=== PATIENT | male | born 1965 | race Caucasian/White ===

== ENCOUNTER 2023-06-07 09:28 | Inpatient (IN) | payer MEDICAID, OTHER ==
[~2023-06-07] VITALS: Ht 182.9 cm; Wt 106.7 kg
[2023-06-07] VITALS (11 sets, daily range): BP systolic 121–132; BP diastolic 56–78; PULSE 80–91; RESP 16–22; TEMP 97.9–98.1; O2SAT 0–99
[2023-06-07] MEDS: SODIUM CHLORIDE 0.9% 1,000 ML IV SCH ×2 (00:55→16:31)
[2023-06-07 10:21] LABS: Eosinophils # (auto) 0.2 10 ^3/uL (0-0.8); Lymphocytes # (auto) 1.1 10 ^3/uL (0.4-5.4); Monocytes # (auto) 0.3 10 ^3/uL (0-1.3); Neutrophils # (auto) 2.7 10 ^3/uL (1.6-8.6)
[2023-06-07 10:23] LABS: Basophils # (auto) 0.1 10 ^3/uL (0-0.2); Basophils % (auto) 2.9 % (0.0-2.0); Eosinophils % (auto) 3.5 % (0.0-7.0); Hematocrit 43.1 % (41.0-53.0); Hemoglobin 14.5 g/dL (13.5-17.5); Lymphocytes % (auto) 25.5 % (10.0-50.0); Mean Corpuscular Hemoglobin 34.2 pg (28.0-32.0); Mean Corpuscular Hgb Conc. 33.7 g/dL (32.0-36.0); Mean Corpuscular Volume 101.4 fL (80.0-100.0); Monocytes % (auto) 6.6 % (0.0-12.0); Neutrophils % (auto) 61.5 % (37.0-80.0); Red Blood Cells 4.26 10^6/uL (4.5-5.90); Red Cell Distribution Width 13.5 % (11.8-14.3); White Blood Cell 4.3 10^3/uL (4.4-10.8)
[2023-06-07 10:34] LABS: Albumin 3.9 g/dL (3.4-5.0); Calcium 8.9 mg/dL (8.5-10.1); Potassium 3.6 mmol/L (3.5-5.1)
[2023-06-07 10:37] LABS: BUN/Creatinine Ratio 11.3 (10.0-20.0); Bilirubin, Total 1.2 mg/dL (0.2-1.0); Total Protein 7.6 g/dL (6.4-8.2)
[2023-06-07] MEDS ORDERED: AZITHROMYCIN 500MG/ 250ML 250 ML IV ONE (12:00)
[2023-06-07] MEDS ORDERED: DexAMETHasone SOD PHOS 10MG/1ML VIAL INJ IV ONE (12:00)
[2023-06-07] MEDS ORDERED: cefTRIAXone 1GM/50ML D5W 50 ML IV ONE (12:00)
[2023-06-07] MEDS ORDERED: IPRATROPIUM BROM 0.5 MG/2.5ML INH SOL NEB ONE (12:00)
[2023-06-07] MEDS ORDERED: ALBUTEROL SULF 2.5 MG/0.5ML(0.5%) NEB SOLN NEB ONE (12:00)
[2023-06-07] MEDS ORDERED: DEXTROSE (50%) 50ML SYRG IV PRN (12:30)
[2023-06-07] MEDS ORDERED: MORPHINE SULFATE INJ 2 MG/ml SYRG IV PRN (12:30)
[2023-06-07] MEDS ORDERED: DOCUSATE SOD 100 MG CAP PO PRN (12:30)
[2023-06-07] MEDS ORDERED: ONDANSETRON HCL 4 MG/2 ML VIAL IV PRN (12:30)
[2023-06-07 13:00] LABS: INR 1.04 (0.9-1.15)
[2023-06-07] MEDS ORDERED: CLOP75TA70 PO (14:40)
[2023-06-07] MEDS ORDERED: FLUO20TA36 PO (14:40)
[2023-06-07] MEDS ORDERED: GABA-1250 PO (14:40)
[2023-06-07] MEDS ORDERED: ACAM1TAB OR (14:40)
[2023-06-07] MEDS ORDERED: METO25TA5 PO (14:40)
[2023-06-07] MEDS: IPRATROPIUM BROM 0.5 MG/2.5ML INH SOL NEB SCH ×3 (14:49→22:28)
[2023-06-07] MEDS: ALBUTEROL SULF 2.5 MG/0.5ML(0.5%) NEB SOLN NEB SCH ×3 (14:49→22:28)
[2023-06-07] MEDS: InsuLIN REG 1unit/0.01ml Soln (100units/ml) SC SCH ×2 (17:35→22:00)
[2023-06-07] MEDS: ACCU-CHEK COMFORT CURVE STRIP VI SCH ×2 (17:52→22:00)
[2023-06-07] MEDS: DexAMETHasone SOD PHOS 4 MG/1ML SDV INJ IV SCH (18:29)
[2023-06-07] MEDS: METOPROLOL TARTRATE 25 MG TAB PO SCH (21:45)
[2023-06-08] VITALS (19 sets, daily range): BP systolic 117–155; BP diastolic 66–83; PULSE 68–95; RESP 18–20; TEMP 97.4–98.1; O2SAT 94–100
[2023-06-08] MEDS: DexAMETHasone SOD PHOS 4 MG/1ML SDV INJ IV SCH ×4 (00:20→18:02)
[2023-06-08] MEDS: ALBUTEROL SULF 2.5 MG/0.5ML(0.5%) NEB SOLN NEB SCH ×6 (01:59→23:13)
[2023-06-08] MEDS: IPRATROPIUM BROM 0.5 MG/2.5ML INH SOL NEB SCH ×6 (01:59→23:13)
[2023-06-08] MEDS: SODIUM CHLORIDE 0.9% 1,000 ML IV SCH ×3 (05:38→22:03)
[2023-06-08] MEDS: ACCU-CHEK COMFORT CURVE STRIP VI SCH ×4 (06:01→22:04)
[2023-06-08] MEDS: InsuLIN REG 1unit/0.01ml Soln (100units/ml) SC SCH ×4 (06:02→22:03)
[2023-06-08 06:39] LABS: Basophils # (auto) 0 10 ^3/uL (0-0.2); Eosinophils # (auto) 0 10 ^3/uL (0-0.8); Hematocrit 37.5 % (41.0-53.0); Hemoglobin 12.8 g/dL (13.5-17.5); Lymphocytes # (auto) 0.4 10 ^3/uL (0.4-5.4); Monocytes # (auto) 0.2 10 ^3/uL (0-1.3); Neutrophils # (auto) 4.4 10 ^3/uL (1.6-8.6); Nucleated Red Blood Cells % 0.2 %; White Blood Cell 5.1 10^3/uL (4.4-10.8)
[2023-06-08 06:43] LABS: Basophils % (auto) 0.1 % (0.0-2.0); Lymphocytes % (auto) 8.3 % (10.0-50.0); Mean Corpuscular Hemoglobin 34.8 pg (28.0-32.0); Mean Corpuscular Hgb Conc. 34.1 g/dL (32.0-36.0); Mean Corpuscular Volume 101.9 fL (80.0-100.0); Monocytes % (auto) 3.9 % (0.0-12.0); Neutrophils % (auto) 87.7 % (37.0-80.0); Red Blood Cells 3.68 10^6/uL (4.5-5.90); Red Cell Distribution Width 13.9 % (11.8-14.3)
[2023-06-08 06:48] LABS: Potassium 3.6 mmol/L (3.5-5.1)
[2023-06-08 07:01] LABS: Albumin 3.2 g/dL (3.4-5.0); BUN/Creatinine Ratio 14.9 (10.0-20.0); Bilirubin, Total 0.7 mg/dL (0.2-1.0); Calcium 8.5 mg/dL (8.5-10.1); Total Protein 6.7 g/dL (6.4-8.2)
[2023-06-08] MEDS: CLOPIDOGREL BISULFATE 75 MG TAB PO SCH (09:28)
[2023-06-08] MEDS: METOPROLOL TARTRATE 25 MG TAB PO SCH ×2 (09:28→21:57)
[2023-06-08] MEDS: PARoxetine 20 MG TAB PO SCH (09:29)
[2023-06-08] MEDS ORDERED: ACETAMINOPHEN 325 MG TAB PO PRN (11:30)
[2023-06-08] MEDS ORDERED: HYDROcodone-ACET 5/325MG TAB PO PRN (11:30)
[2023-06-08] MEDS ORDERED: MELATONIN 5 MG TAB PO ONE ×2 (22:00)
[2023-06-08] MEDS ORDERED: TEMAZEPAM 15 MG CAP PO ONE (22:15)
[2023-06-09] VITALS (15 sets, daily range): BP systolic 130–166; BP diastolic 70–84; PULSE 55–99; RESP 14–20; TEMP 97.6–98.6; O2SAT 95–99
[2023-06-09] MEDS: DexAMETHasone SOD PHOS 4 MG/1ML SDV INJ IV SCH ×4 (00:45→17:49)
[2023-06-09] MEDS: IPRATROPIUM BROM 0.5 MG/2.5ML INH SOL NEB SCH ×6 (02:00→22:23)
[2023-06-09] MEDS: ALBUTEROL SULF 2.5 MG/0.5ML(0.5%) NEB SOLN NEB SCH ×6 (02:00→22:23)
[2023-06-09] MEDS: ACCU-CHEK COMFORT CURVE STRIP VI SCH ×4 (06:01→21:11)
[2023-06-09] MEDS: InsuLIN REG 1unit/0.01ml Soln (100units/ml) SC SCH ×4 (06:05→21:14)
[2023-06-09] MEDS: SODIUM CHLORIDE 0.9% 1,000 ML IV SCH ×3 (06:10→22:50)
[2023-06-09] MEDS: CLOPIDOGREL BISULFATE 75 MG TAB PO SCH (10:45)
[2023-06-09] MEDS: PARoxetine 20 MG TAB PO SCH (10:46)
[2023-06-09] MEDS: METOPROLOL TARTRATE 25 MG TAB PO SCH ×2 (10:46→21:11)
[2023-06-09] MEDS ORDERED: levoFLOXacin 500MG 100 ML IV ONE (11:15)
[2023-06-09] MEDS: chlordiazePOXIDE HCL 25 MG CAP PO SCH ×2 (14:23→18:36)
[2023-06-09] MEDS: FOLIC ACID 1 MG, MULTIPLE VITAMIN 10 ML, MAGNESIUM SULF SDV 50% 8 MEQ, THIAMINE INJ 100... INJ SCH ×5 (14:23)
[2023-06-09] MEDS ORDERED: TEMAZEPAM 15 MG CAP PO ONE (22:15)
[2023-06-10] VITALS (15 sets, daily range): BP systolic 123–158; BP diastolic 68–81; PULSE 63–88; RESP 16–20; TEMP 97.7–98.6; O2SAT 93–100
[2023-06-10] MEDS: DexAMETHasone SOD PHOS 4 MG/1ML SDV INJ IV SCH ×5 (00:25→23:49)
[2023-06-10] MEDS: ALBUTEROL SULF 2.5 MG/0.5ML(0.5%) NEB SOLN NEB SCH ×4 (02:14→13:54)
[2023-06-10] MEDS: IPRATROPIUM BROM 0.5 MG/2.5ML INH SOL NEB SCH ×4 (02:14→13:54)
[2023-06-10] MEDS: chlordiazePOXIDE HCL 25 MG CAP PO SCH ×3 (02:43→21:37)
[2023-06-10] MEDS: SODIUM CHLORIDE 0.9% 1,000 ML IV SCH ×2 (05:55→15:30)
[2023-06-10] MEDS: ACCU-CHEK COMFORT CURVE STRIP VI SCH ×4 (06:16→21:38)
[2023-06-10] MEDS: InsuLIN REG 1unit/0.01ml Soln (100units/ml) SC SCH ×4 (06:16→21:44)
[2023-06-10 06:23] LABS: Potassium 3.8 mmol/L (3.5-5.1)
[2023-06-10 06:30] LABS: Albumin 2.9 g/dL (3.4-5.0); BUN/Creatinine Ratio 16.2 (10.0-20.0); Bilirubin, Total 0.5 mg/dL (0.2-1.0); Calcium 8.2 mg/dL (8.5-10.1)
[2023-06-10] MEDS: levoFLOXacin 500MG 100 ML IV SCH (11:28)
[2023-06-10] MEDS: PARoxetine 20 MG TAB PO SCH (11:29)
[2023-06-10] MEDS: CLOPIDOGREL BISULFATE 75 MG TAB PO SCH (11:29)
[2023-06-10] MEDS: METOPROLOL TARTRATE 25 MG TAB PO SCH ×2 (11:30→21:38)
[2023-06-10] MEDS: FOLIC ACID 1 MG, MULTIPLE VITAMIN 10 ML, MAGNESIUM SULF SDV 50% 8 MEQ, THIAMINE INJ 100... INJ SCH ×5 (13:10)
[2023-06-10] MEDS ORDERED: ALBUTEROL SULF 2.5 MG/0.5ML(0.5%) NEB SOLN NEB PRN (18:00)
[2023-06-10] MEDS ORDERED: IPRATROPIUM BROM 0.5 MG/2.5ML INH SOL NEB PRN (18:00)
[2023-06-10] MEDS ORDERED: TEMAZEPAM 15 MG CAP PO ONE (21:00)
[2023-06-11] MEDS: SODIUM CHLORIDE 0.9% 1,000 ML IV SCH ×2 (00:13→08:08)
[2023-06-11 05:00] VITALS: BP 162/71; PULSE 67; RESP 18; TEMP 97.6; O2SAT 94
[2023-06-11] MEDS: InsuLIN REG 1unit/0.01ml Soln (100units/ml) SC SCH ×2 (06:27→11:30)
[2023-06-11] MEDS: DexAMETHasone SOD PHOS 4 MG/1ML SDV INJ IV SCH ×2 (06:27→12:24)
[2023-06-11] MEDS: ACCU-CHEK COMFORT CURVE STRIP VI SCH ×2 (06:27→11:35)
[2023-06-11 07:18] LABS: Potassium 4.1 mmol/L (3.5-5.1)
[2023-06-11 07:24] LABS: Albumin 2.8 g/dL (3.4-5.0); Bilirubin, Total 0.4 mg/dL (0.2-1.0); Calcium 8.4 mg/dL (8.5-10.1); Total Protein 5.9 g/dL (6.4-8.2)
[2023-06-11 08:00] VITALS: BP 156/95; PULSE 55; RESP 18; TEMP 98.1; O2SAT 97
[2023-06-11 08:37] LABS: Hepatitis B Surface Antibody Negative (Negative)
[2023-06-11 09:00] VITALS: BP 156/95; PULSE 55; RESP 18; TEMP 98.1; O2SAT 97
[2023-06-11 09:04] LABS: Hepatitis A Total Antibody Negative (Negative)
[2023-06-11 09:29] LABS: Hepatitis C Antibody Negative (Negative)
[2023-06-11] MEDS: METOPROLOL TARTRATE 25 MG TAB PO SCH (10:00)
[2023-06-11] MEDS ORDERED: chlordiazePOXIDE HCL 25 MG CAP PO SCH (10:00)
[2023-06-11] MEDS: CLOPIDOGREL BISULFATE 75 MG TAB PO SCH (10:34)
[2023-06-11] MEDS: PARoxetine 20 MG TAB PO SCH (10:34)
[2023-06-11] MEDS: levoFLOXacin 500MG 100 ML IV SCH (10:34)
[2023-06-11] MEDS: FOLIC ACID 1 MG, MULTIPLE VITAMIN 10 ML, MAGNESIUM SULF SDV 50% 8 MEQ, THIAMINE INJ 100... INJ SCH ×5 (12:00)
[2023-06-11] MEDS ORDERED: THIA100T13 PO (12:40)
[2023-06-11] MEDS ORDERED: PANT40T PO (12:40)
[2023-06-11] MEDS ORDERED: CHL25C PO (12:40)
[2023-06-11] MEDS ORDERED: MULT-1058 PO (12:40)
[2023-06-11] MEDS ORDERED: FOLI-119 PO (12:40)
[2023-06-11] MEDS ORDERED: LEVO500T91 PO (12:40)
[2023-06-12] MEDS ORDERED: chlordiazePOXIDE HCL 25 MG CAP PO SCH (07:00)
== END 2023-06-11 13:41 | disposition home or self-care (01) | DRG 137 ==
LOC: ER 09:28 → OVERFLOW 12:39 → WEST WING 14:00
PROVIDERS: ADMIT Internal Medicine; ATTEND Family Medicine
DX: J69.0 Pneumonitis due to inhalation of food and vomit (principal); N17.9 Acute kidney failure, unspecified; F32.A Depression, unspecified; I10 Essential (primary) hypertension; F41.9 Anxiety disorder, unspecified; Z86.79 Personal history of other diseases of the circulatory system; R74.01 Elevation of levels of liver transaminase levels; R73.9 Hyperglycemia, unspecified; F10.10 Alcohol abuse, uncomplicated
CPT/HCPCS: 36415; 36600; 71046; 76705; 80053; 82805; 82962; 83036; 84484; 85025; 85379; 85610; 86704; 86706; 86708; 86803; 87340; 93005; 93306; 94640; 96365; 96375; G0378; J0696; J1100; J1815; J1956

== ENCOUNTER 2023-08-22 12:24 | Emergency (ER) | payer MEDICAID ==
[~2023-08-22] VITALS: Ht 182.9 cm; Wt 104.7 kg
[~2023-08-22 12:24] MED LIST: ACAM1TAB OR; CHL25C PO; CLOP75TA70 PO; FLUO20TA36 PO; FOLI-119 PO; GABA-1250 PO; LEVO500T91 PO; METO25TA5 PO; MULT-1058 PO; PANT40T PO; THIA100T13 PO
[2023-08-22] MEDS ORDERED: CHL10C PO ×2 (12:41)
[2023-08-22] MEDS ORDERED: LORazepam 2MG/ML-1ML VIAL IV ONE (12:45)
[2023-08-22 13:02] LABS: Basophils # (auto) 0.1 10 ^3/uL (0-0.2); Basophils % (auto) 0.8 % (0.0-2.0); Hemoglobin 15.1 g/dL (13.5-17.5); Lymphocytes # (auto) 1.6 10 ^3/uL (0.4-5.4); Neutrophils # (auto) 6.8 10 ^3/uL (1.6-8.6); Nucleated Red Blood Cells % 0.1 %
[2023-08-22 13:03] LABS: Eosinophils # (auto) 0.1 10 ^3/uL (0-0.8); Eosinophils % (auto) 1.6 % (0.0-7.0); Hematocrit 44.6 % (41.0-53.0); Lymphocytes % (auto) 17.9 % (10.0-50.0); Mean Corpuscular Hemoglobin 34.7 pg (28.0-32.0); Mean Corpuscular Hgb Conc. 33.9 g/dL (32.0-36.0); Mean Corpuscular Volume 102.5 fL (80.0-100.0); Monocytes # (auto) 0.4 10 ^3/uL (0-1.3); Monocytes % (auto) 4.5 % (0.0-12.0); Neutrophils % (auto) 75.2 % (37.0-80.0); Red Blood Cells 4.35 10^6/uL (4.5-5.90); Red Cell Distribution Width 13.9 % (11.8-14.3)
[2023-08-22 13:22] LABS: Alanine Aminotransferase 56 U/L (7-40); Albumin 4.4 g/dL (3.2-4.8); Alkaline Phosphatase 88 U/L (46-116); Anion Gap 11 (5-15); Aspartate Aminotransferase 50 U/L (13-40); BUN/Creatinine Ratio 8.1 (10.0-20.0); Blood Alcohol < 3.0 mg/dL (<10); Blood Urea Nitrogen 9 mg/dL (9-23); Calcium 9.4 mg/dL (8.7-10.4); Carbon Dioxide 22 mmol/L (20-30); Chloride 105 mmol/L (98-107); Glucose 103 mg/dL (74-106); Potassium 3.9 mmol/L (3.5-5.1); Sodium 138 mmol/L (136-145)
[2023-08-22 13:23] LABS: Bilirubin, Total 1.7 mg/dL (0.2-1.0); Total Protein 7.1 g/dL (5.7-8.2)
[2023-08-22] MEDS ORDERED: FOLIC ACID 1 MG, MULTIPLE VITAMIN 10 ML, MAGNESIUM SULF SDV 50% 8 MEQ, THIAMINE INJ 100... INJ SCH ×5 (13:52)
[2023-08-22 15:07] VITALS: PULSE 64; RESP 18; O2SAT 94
[2023-08-22 19:31] VITALS: BP 125/83; PULSE 73; RESP 18; TEMP 98.4; O2SAT 97
== END 2023-08-22 19:35 | disposition home or self-care (01) ==
LOC: ER 12:24
DX: F10.239 Alcohol dependence with withdrawal, unspecified (principal); R11.2 Nausea with vomiting, unspecified; R25.1 Tremor, unspecified; Y90.9 Presence of alcohol in blood, level not specified
CPT/HCPCS: 36415; 80053; 80320; 85025; 96365; 96375; 99284; J2060; J3411; J3475

== ENCOUNTER 2023-08-28 08:46 | Emergency (ER) | payer MEDICAID ==
[~2023-08-28] VITALS: Ht 182.9 cm; Wt 107.2 kg
[~2023-08-28 08:46] MED LIST changes: +CHL10C PO
[2023-08-28 09:04] VITALS: BP 164/66; PULSE 63; RESP 18; TEMP 98.4; O2SAT 98
[2023-08-28] MEDS ORDERED: CHL10C PO (09:11)
== END 2023-08-28 09:23 | disposition home or self-care (01) ==
LOC: ER 08:46
DX: F10.20 Alcohol dependence, uncomplicated (principal); Z76.0 Encounter for issue of repeat prescription; Z90.49 Acquired absence of other specified parts of digestive tract; Z79.899 Other long term (current) drug therapy; Y90.0 Blood alcohol level of less than 20 mg/100 ml

== ENCOUNTER 2023-10-16 11:18 | Inpatient (IN) | payer MEDICAID ==
[~2023-10-16] VITALS: Ht 182.9 cm; Wt 108.8 kg
[2023-10-16] MEDS ORDERED: LORazepam 2MG/ML-1ML VIAL IV ONE (12:00)
[2023-10-16 12:08] LABS: Basophils # (auto) 0.1 10 ^3/uL (0-0.2); Basophils % (auto) 1.2 % (0.0-2.0); Eosinophils # (auto) 0.1 10 ^3/uL (0-0.8); Eosinophils % (auto) 1.9 % (0.0-7.0); Hematocrit 43.7 % (41.0-53.0); Hemoglobin 14.8 g/dL (13.5-17.5); Lymphocytes # (auto) 1.3 10 ^3/uL (0.4-5.4); Lymphocytes % (auto) 18.5 % (10.0-50.0); Mean Corpuscular Hgb Conc. 33.8 g/dL (32.0-36.0); Mean Corpuscular Volume 100.6 fL (80.0-100.0); Monocytes # (auto) 0.5 10 ^3/uL (0-1.3); Monocytes % (auto) 7.6 % (0.0-12.0); Neutrophils # (auto) 4.9 10 ^3/uL (1.6-8.6); Neutrophils % (auto) 70.8 % (37.0-80.0); Nucleated Red Blood Cells % 0.1 %; Red Blood Cells 4.35 10^6/uL (4.5-5.90); Red Cell Distribution Width 14.8 % (11.8-14.3)
[2023-10-16 12:17] LABS: Alkaline Phosphatase 65 U/L (46-116); Aspartate Aminotransferase 99 U/L (13-40); Blood Alcohol 3.3 mg/dL (<10); Calcium 9.2 mg/dL (8.5-10.1); Chloride 100 mmol/L (98-107); Glucose 118 mg/dL (74-106); Sodium 134 mmol/L (136-145)
[2023-10-16] MEDS ORDERED: SODIUM CHLORIDE 0.9% 1,000 ML IV ONE (12:45)
[2023-10-16 14:39] LABS: Alanine Aminotransferase 31 U/L (7-40); Albumin 4.3 g/dL (3.2-4.8); Anion Gap 7 (5-15); BUN/Creatinine Ratio 7.9 (10.0-20.0); Bilirubin, Total 1.7 mg/dL (0.2-1.0); Blood Urea Nitrogen 8 mg/dL (9-23); Carbon Dioxide 27 mmol/L (20-30); Potassium 3.4 mmol/L (3.5-5.1); Total Protein 6.7 g/dL (5.7-8.2)
[2023-10-16] MEDS ORDERED: NITROGLYCERIN 0.4 MG SL TAB SL PRN (18:00)
[2023-10-16] MEDS ORDERED: ACETAMINOPHEN 325 MG TAB PO PRN (18:00)
[2023-10-16] MEDS ORDERED: ONDANSETRON HCL 4 MG/2 ML VIAL IV PRN (18:00)
[2023-10-16] MEDS ORDERED: HYDROcodone-ACET 5/325MG TAB PO PRN (18:00)
[2023-10-16] MEDS ORDERED: MORPHINE SULFATE INJ 2 MG/ml SYRG IV PRN ×2 (18:00)
[2023-10-16] MEDS ORDERED: LORazepam 2MG/ML-1ML VIAL IV PRN (18:00)
[2023-10-16 19:05] VITALS: TEMP 98.4
[2023-10-16] MEDS: chlordiazePOXIDE HCL 5 MG CAP PO SCH ×2 (21:33→22:00)
[2023-10-16 23:21] VITALS: BP 138/74; PULSE 65; RESP 18; O2SAT 95
[2023-10-17] MEDS ORDERED: MAGNESIUM SULFATE 1GM/100ML 100 ML IV SCH
[2023-10-17] MEDS ORDERED: POTASSIUM CHL 20 Meq TABLET PO ONE (00:30)
[2023-10-17] MEDS ORDERED: SODIUM CHLORIDE 0.9% 1,000 ML IV ONE (00:30)
[2023-10-17 01:02] LABS: Urine Bacteria NONE SEEN /hpf (None Seen); Urine Blood Negative /uL (Negative); Urine Clarity Clear (Clear); Urine Color Orange (Yellow); Urine Hyaline Cast MOD /lpf (0 - 2); Urine Mucus MODERATE (None Seen); Urine Protein, UAD 2+ (Negative); Urine Specific Gravity 1.043 (1.001-1.035); Urine WBC 4 /hpf (0 - 3)
[2023-10-17 01:23] LABS: Amphetamine Screen, Urine Neg (NEGATIVE); Barbiturate Scree,Urine Neg (NEGATIVE); Benzodiazephine Screen, Urine Pos (NEGATIVE); Cocaine Screen, Urine Neg (NEGATIVE); Opiate Scree,Urine Neg (NEGATIVE)
[2023-10-17 01:24] LABS: Cannabinoid Screen, Urine Neg (NEGATIVE); Phencyclidine Screen, Urine Neg (NEGATIVE)
[2023-10-17] MEDS ORDERED: MULTIPLE VITAMIN TAB PO SCH (10:00)
[2023-10-17] MEDS ORDERED: ENOXAPARIN SOD 40 MG/0.4 ML SYRINGE SC SCH (10:00)
[2023-10-17] MEDS ORDERED: FOLIC ACID 1 MG, MULTIPLE VITAMIN 10 ML, MAGNESIUM SULF SDV 50% 8 MEQ, THIAMINE INJ 100... INJ SCH ×5 (12:00)
== END 2023-10-17 05:13 | disposition left against medical advice (07) | DRG 770 ==
LOC: ER 11:18 → TELE 17:56
PROVIDERS: ADMIT Internal Medicine; ATTEND Internal Medicine
DX: F10.139 Alcohol abuse with withdrawal, unspecified (principal); E87.1 Hypo-osmolality and hyponatremia; E83.42 Hypomagnesemia; I10 Essential (primary) hypertension; Z53.29 Procedure and treatment not carried out because of patient's decision for other reasons; F41.9 Anxiety disorder, unspecified; E87.6 Hypokalemia
CPT/HCPCS: 36415; 80053; 80307; 80320; 81001; 83735; 84484; 85025; 96361; 96374; G0378

== ENCOUNTER 2024-03-20 13:36 | Inpatient (IN) | payer MEDICAID ==
[~2024-03-20] VITALS: Ht 182.9 cm; Wt 101.2 kg
[~2024-03-20 13:36] MED LIST changes: -LEVO500T91 PO
[2024-03-20 13:57] LABS: Mean Corpuscular Hemoglobin 34.9 pg (28.0-32.0)
[2024-03-20 14:00] LABS: Hematocrit 41.2 % (41.0-53.0); Hemoglobin 13.8 g/dL (13.5-17.5); Mean Corpuscular Hgb Conc. 33.6 g/dL (32.0-36.0); Mean Corpuscular Volume 103.9 fL (80.0-100.0); Red Blood Cells 3.96 10^6/uL (4.5-5.90); Red Cell Distribution Width 14.4 % (11.8-14.3); White Blood Cell 11.4 10^3/uL (4.4-10.8)
[2024-03-20] MEDS ORDERED: ASPirin 81 mg TAB PO ONE (14:15)
[2024-03-20 14:17] LABS: Alanine Aminotransferase 34 U/L (7-40); Alkaline Phosphatase 82 U/L (46-116); Anion Gap 15 (5-15); Aspartate Aminotransferase 66 U/L (13-40); BUN/Creatinine Ratio 23.3 (10.0-20.0); Calcium 7.9 mg/dL (8.5-10.1); Carbon Dioxide 23 mmol/L (20-30); Chloride 100 mmol/L (98-107); Glucose 146 mg/dL (74-106); Potassium 3.3 mmol/L (3.5-5.1); Sodium 138 mmol/L (136-145)
[2024-03-20 14:18] LABS: Bilirubin, Total 1.3 mg/dL (0.2-1.0); Total Protein 5.8 g/dL (5.7-8.2)
[2024-03-20 14:34] LABS: Blood Urea Nitrogen 87 mg/dL (9-23)
[2024-03-20 14:39] LABS: Basophils % (manual) 0 (0.0-2.0); Blast Cells 0; Eosinophils % (manual) 0 (0-7); Myelocytes % 0; Promyelocytes % 0; Reactive Lymphocytes 0
[2024-03-20 14:40] LABS: Blood Alcohol 3.2 mg/dL (<10)
[2024-03-20 14:46] LABS: INR 1.15 (0.9-1.15); Partial Thromboplastin Time 29.3 SEC (24.5-34.5); Prothrombin Time 12.1 sec (9.3-11.8)
[2024-03-20 14:48] LABS: Band Neutrophils % (manual) 22; Lymphocytes % (manual) 4 (10.0-50.0); Metamyelocytes % 5; Monocytes % (manual) 1 (0-12)
[2024-03-20 14:49] LABS: Platelet Estimate Adequate
[2024-03-20] MEDS: BUDESONIDE (INHALATION) 0.5 MG/2 ML NEB NEB ONE (14:49)
[2024-03-20] MEDS: ALBUTEROL SULF 2.5 MG/0.5ML(0.5%) NEB SOLN NEB ONE (14:50)
[2024-03-20] MEDS: IPRATROPIUM BROM 0.5 MG/2.5ML INH SOL NEB ONE (14:50)
[2024-03-20 15:22] LABS: Lactic Acid w/Reflex 4.5 mmol/L (0.4-2.0)
[2024-03-20] MEDS: SODIUM CHLORIDE 0.9% 2,350 ML IV ONE (15:45)
[2024-03-20] MEDS: SODIUM CHLORIDE 0.9% 1,000 ML IV ONE (16:00)
[2024-03-20] MEDS: PIPERACILLIN-TAZOB 3.375GM 100 ML IV ONE (16:19)
[2024-03-20] MEDS: DexAMETHasone SOD PHOS 10MG/1ML VIAL INJ IV ONE (16:19)
[2024-03-20] MEDS: HYDROcodone-ACET 10/325MG TAB PO ONE (16:19)
[2024-03-20 16:56] VITALS: PULSE 110; RESP 26; O2SAT 95
[2024-03-20] MEDS: METOCLOPRAMIDE HCL 5MG/ml INJ 2ml VIAL IV ONE (17:51)
[2024-03-20 18:41] LABS: COVID19 ANTIGEN SOFIA FIA NEGATIVE (NEGATIVE); Rapid Influenza A Negative (Negative); Rapid Influenza B Negative (Negative)
[2024-03-20 19:30] VITALS: PULSE 94; RESP 17; O2SAT 95
[2024-03-20] MEDS ORDERED: MORPHINE SULFATE INJ 2 MG/ml SYRG IV PRN (21:45)
[2024-03-20] MEDS ORDERED: NITROGLYCERIN 0.4 MG SL TAB SL PRN (21:45)
[2024-03-20 22:09] VITALS: BP 114/81; PULSE 95; RESP 20; O2SAT 95
[2024-03-20] MEDS: ONDANSETRON HCL 4 MG/2 ML VIAL IV PRN (22:43)
[2024-03-20] MEDS: MORPHINE SULFATE INJ 2 MG/ml SYRG IV PRN (22:44)
[2024-03-20] MEDS: HEPARIN SODIUM (PORCINE) 5000 UNITS/ML 1ML VIAL SC SCH (22:47)
[2024-03-20] MEDS: PROMETHAZINE-DM 5 ML ORAL SYRUP PO ONE (22:48)
[2024-03-20] MEDS: SODIUM CHLORIDE 0.9% 1,000 ML IV SCH (22:48)
[2024-03-20 22:57] VITALS: PULSE 110; RESP 20; O2SAT 95
[2024-03-20] MEDS: ALBUTEROL SULF 2.5 MG/0.5ML(0.5%) NEB SOLN NEB SCH (22:57)
[2024-03-20] MEDS: IPRATROPIUM BROM 0.5 MG/2.5ML INH SOL NEB SCH (22:57)
[2024-03-20 23:07] VITALS: PULSE 100; RESP 20; O2SAT 98
[2024-03-20 23:29] LABS: Lactic Acid w/Reflex 3.1 mmol/L (0.4-2.0)
[2024-03-21] VITALS (17 sets, daily range): BP systolic 133–163; BP diastolic 32–79; PULSE 82–120; RESP 13–20; TEMP 98.1; O2SAT 93–100
[2024-03-21] MEDS ORDERED: VANCOMYCIN PER PHARMACY 0 MG IV SCH (03:15)
[2024-03-21 05:34] LABS: Anion Gap 12 (5-15); Carbon Dioxide 23 mmol/L (20-30); Chloride 104 mmol/L (98-107); Potassium 3.2 mmol/L (3.5-5.1); Sodium 139 mmol/L (136-145)
[2024-03-21] MEDS: VANCOMYCIN 1GM/200ML 200 ML IV ONE (05:34)
[2024-03-21 05:40] LABS: BUN/Creatinine Ratio 26.7 (10.0-20.0); Glucose 225 mg/dL (74-106)
[2024-03-21 05:43] LABS: Blood Urea Nitrogen 76 mg/dL (9-23)
[2024-03-21 05:45] LABS: Hemoglobin 11.9 g/dL (13.5-17.5)
[2024-03-21 05:50] LABS: Lactic Acid w/Reflex 2.6 mmol/L (0.4-2.0)
[2024-03-21 06:02] LABS: Hematocrit 35.6 % (41.0-53.0); Mean Corpuscular Hemoglobin 34.5 pg (28.0-32.0); Mean Corpuscular Hgb Conc. 33.5 g/dL (32.0-36.0); Mean Corpuscular Volume 103.1 fL (80.0-100.0); Red Blood Cells 3.45 10^6/uL (4.5-5.90); Red Cell Distribution Width 14.5 % (11.8-14.3); White Blood Cell 11.3 10^3/uL (4.4-10.8)
[2024-03-21 06:03] LABS: Basophils % (manual) 0 (0.0-2.0); Blast Cells 0; Eosinophils % (manual) 0 (0-7); Metamyelocytes % 0; Myelocytes % 0; Promyelocytes % 0; Reactive Lymphocytes 0
[2024-03-21] MEDS: POTASSIUM CHL 20 Meq TABLET PO ONE (06:12)
[2024-03-21 08:27] LABS: Band Neutrophils % (manual) 24; Lymphocytes % (manual) 4 (10.0-50.0); Monocytes % (manual) 6 (0-12); Platelet Estimate Adequate
[2024-03-21] MEDS ORDERED: AZITHROMYCIN 500MG/ 250ML 250 ML IV SCH (10:00)
[2024-03-21 10:21] LABS: Anion Gap 10 (5-15); Carbon Dioxide 24 mmol/L (20-30); Chloride 104 mmol/L (98-107); Potassium 3.1 mmol/L (3.5-5.1); Sodium 138 mmol/L (136-145)
[2024-03-21 10:22] LABS: Calcium 7.7 mg/dL (8.5-10.1)
[2024-03-21] MEDS: CLOPIDOGREL BISULFATE 75 MG TAB PO SCH (10:22)
[2024-03-21] MEDS: cefTRIAXone 1GM/50ML D5W 50 ML IV SCH (10:22)
[2024-03-21 10:27] LABS: BUN/Creatinine Ratio 28.8 (10.0-20.0); Blood Urea Nitrogen 74 mg/dL (9-23); Glucose 258 mg/dL (74-106)
[2024-03-21 11:13] LABS: Urine Bacteria FEW /hpf (None Seen); Urine Blood Negative /uL (Negative); Urine Clarity Clear (Clear); Urine Color Yellow (Yellow); Urine Protein, UAD TRACE (Negative); Urine Specific Gravity 1.019 (1.001-1.035); Urine Urobilinogen Normal (Negative); Urine WBC 1 /hpf (0 - 3)
[2024-03-21 11:21] LABS: Amphetamine Screen, Urine Neg (NEGATIVE); Barbiturate Scree,Urine Neg (NEGATIVE); Benzodiazephine Screen, Urine Neg (NEGATIVE); Cannabinoid Screen, Urine Neg (NEGATIVE); Cocaine Screen, Urine Neg (NEGATIVE); Opiate Scree,Urine Pos (NEGATIVE); Phencyclidine Screen, Urine Neg (NEGATIVE)
[2024-03-21] MEDS: VANCOMYCIN 500 MG in D5W 5% 100 ML IV ONE (12:30)
[2024-03-21 16:37] LABS: Chloride 104 mmol/L (98-107); Sodium 136 mmol/L (136-145)
[2024-03-21 16:38] LABS: Anion Gap 12 (5-15); Calcium 8.1 mg/dL (8.5-10.1); Carbon Dioxide 20 mmol/L (20-30)
[2024-03-21 16:43] LABS: BUN/Creatinine Ratio 27.1 (10.0-20.0); Glucose 214 mg/dL (74-106)
[2024-03-21 16:47] LABS: Blood Urea Nitrogen 61 mg/dL (9-23)
[2024-03-21] MEDS: chlordiazePOXIDE HCL 25 MG CAP PO PRN (18:15)
[2024-03-21] MEDS ORDERED: METO-158 PO (18:37)
[2024-03-21] MEDS ORDERED: ESOM20CA PO (18:39)
[2024-03-21] MEDS ORDERED: CELE100C82 PO (18:39)
[2024-03-21] MEDS ORDERED: MELA3TAB27 PO (18:39)
[2024-03-21 19:07] LABS: Sodium Urine < 10 mmol/L (40-220)
[2024-03-21 19:11] LABS: Protein, Urine 59.2 mg/dL (0.0-11.9)
[2024-03-21 19:14] LABS: Creatinine, Urine 116.54 mg/dL (30.0-125.0)
[2024-03-21] MEDS: HYDROcodone-ACET 5/325MG TAB PO PRN (21:27)
[2024-03-22] VITALS (21 sets, daily range): BP systolic 143–168; BP diastolic 76–88; PULSE 82–107; RESP 16–20; TEMP 97.8–98.3; O2SAT 94–99
[2024-03-22] MEDS: FOLIC ACID 1 MG, MAGNESIUM SULF SDV 50% 8 MEQ, MULTIPLE VITAMIN 10 ML, THIAMINE INJ 100... INJ SCH (03:52)
[2024-03-22 07:12] LABS: Basophils # (auto) 0 10 ^3/uL (0-0.2); Basophils % (auto) 0.3 % (0.0-2.0); Eosinophils # (auto) 0.1 10 ^3/uL (0-0.8); Eosinophils % (auto) 0.4 % (0.0-7.0); Hematocrit 34.1 % (41.0-53.0); Hemoglobin 11.1 g/dL (13.5-17.5); Lymphocytes # (auto) 1.2 10 ^3/uL (0.4-5.4); Lymphocytes % (auto) 8.8 % (10.0-50.0); Mean Corpuscular Hemoglobin 30.3 pg (28.0-32.0); Mean Corpuscular Hgb Conc. 32.5 g/dL (32.0-36.0); Mean Corpuscular Volume 93.3 fL (80.0-100.0); Monocytes # (auto) 1.1 10 ^3/uL (0-1.3); Monocytes % (auto) 7.8 % (0.0-12.0); Neutrophils # (auto) 11.5 10 ^3/uL (1.6-8.6); Neutrophils % (auto) 82.7 % (37.0-80.0); Red Blood Cells 3.65 10^6/uL (4.5-5.90); Red Cell Distribution Width 14.4 % (11.8-14.3); White Blood Cell 13.8 10^3/uL (4.4-10.8)
[2024-03-22 07:17] LABS: Chloride 102 mmol/L (98-107); Potassium 4.2 mmol/L (3.5-5.1); Sodium 136 mmol/L (136-145)
[2024-03-22 07:18] LABS: Anion Gap 10 (5-15); Carbon Dioxide 24 mmol/L (20-30)
[2024-03-22 07:19] LABS: Calcium 9.3 mg/dL (8.7-10.4)
[2024-03-22 07:23] LABS: Glucose 146 mg/dL (74-106); Uric Acid 7.4 mg/dL (3.7-9.2)
[2024-03-22 07:24] LABS: BUN/Creatinine Ratio 15.9 (10.0-20.0); Blood Urea Nitrogen 22 mg/dL (9-23)
[2024-03-22 07:40] LABS: Magnesium 2.2 mg/dL (1.6-2.6)
[2024-03-22 08:20] LABS: Phosphorus 4.4 mg/dL (2.4-5.1)
[2024-03-22] MEDS: VANCOMYCIN 1GM/200ML 200 ML IV SCH (10:08)
[2024-03-22] MEDS: IOHEXOL 350 MG/ML 100ML IJ ONE (13:10)
[2024-03-22] MEDS: ACETAMINOPHEN 325 MG TAB PO PRN (13:41)
[2024-03-22] MEDS: methylPREDNISolone SOD SUCC 125 MG/2 ML VL IV SCH (16:03)
[2024-03-22] MEDS: hydrALAZINE HCL 20 MG/ML VL IV PRN (16:04)
[2024-03-22] MEDS: FLUTICASONE PROP NASAL SPR 0.05 % (50MCG) 16GM EACHNOSTRI SCH (21:36)
[2024-03-22] MEDS: METOPROLOL TARTRATE 50 MG TAB PO SCH (21:38)
[2024-03-23] VITALS (19 sets, daily range): BP systolic 145–167; BP diastolic 78–95; PULSE 79–101; RESP 16–22; TEMP 97.7–98.9; O2SAT 91–98
[2024-03-23 07:26] LABS: Chloride 106 mmol/L (98-107); Potassium 3.4 mmol/L (3.5-5.1); Sodium 139 mmol/L (136-145)
[2024-03-23 07:27] LABS: Anion Gap 10 (5-15); Calcium 8.2 mg/dL (8.7-10.4); Carbon Dioxide 23 mmol/L (20-30)
[2024-03-23 07:28] LABS: Basophils # (auto) 0 10 ^3/uL (0-0.2); Basophils % (auto) 0.1 % (0.0-2.0); Eosinophils # (auto) 0 10 ^3/uL (0-0.8); Hematocrit 33.2 % (41.0-53.0); Lymphocytes # (auto) 0.4 10 ^3/uL (0.4-5.4); Lymphocytes % (auto) 6.4 % (10.0-50.0); Mean Corpuscular Hemoglobin 34.7 pg (28.0-32.0); Mean Corpuscular Hgb Conc. 33.1 g/dL (32.0-36.0); Mean Corpuscular Volume 104.8 fL (80.0-100.0); Monocytes # (auto) 0.2 10 ^3/uL (0-1.3); Monocytes % (auto) 3.2 % (0.0-12.0); Neutrophils # (auto) 5.5 10 ^3/uL (1.6-8.6); Neutrophils % (auto) 90.3 % (37.0-80.0); Nucleated Red Blood Cells % 0.1 %; Red Blood Cells 3.17 10^6/uL (4.5-5.90); Red Cell Distribution Width 15.1 % (11.8-14.3); White Blood Cell 6.1 10^3/uL (4.4-10.8)
[2024-03-23 07:32] LABS: BUN/Creatinine Ratio 32.6 (10.0-20.0); Glucose 167 mg/dL (74-106)
[2024-03-23 07:40] LABS: Blood Urea Nitrogen 43 mg/dL (9-23)
[2024-03-23] MEDS: LORazepam 2MG/ML-1ML VIAL IV PRN (17:24)
[2024-03-23] MEDS: TEMAZEPAM 15 MG CAP PO ONE (21:56)
[2024-03-24] VITALS (17 sets, daily range): BP systolic 146–180; BP diastolic 66–92; PULSE 74–111; RESP 17–24; TEMP 98.2–98.6; O2SAT 91–98
[2024-03-24 05:03] LABS: Basophils # (auto) 0 10 ^3/uL (0-0.2); Eosinophils # (auto) 0 10 ^3/uL (0-0.8); Hemoglobin 10.7 g/dL (13.5-17.5); Lymphocytes # (auto) 0.3 10 ^3/uL (0.4-5.4); Lymphocytes % (auto) 5.2 % (10.0-50.0)
[2024-03-24 05:05] LABS: Basophils % (auto) 0.2 % (0.0-2.0); Eosinophils % (auto) 0.1 % (0.0-7.0); Hematocrit 32.3 % (41.0-53.0); Mean Corpuscular Hemoglobin 34.2 pg (28.0-32.0); Mean Corpuscular Hgb Conc. 33.2 g/dL (32.0-36.0); Monocytes # (auto) 0.2 10 ^3/uL (0-1.3); Neutrophils # (auto) 5.2 10 ^3/uL (1.6-8.6); Neutrophils % (auto) 91.5 % (37.0-80.0); Nucleated Red Blood Cells % 0.1 %; Red Blood Cells 3.14 10^6/uL (4.5-5.90); White Blood Cell 5.6 10^3/uL (4.4-10.8)
[2024-03-24 05:08] LABS: Chloride 108 mmol/L (98-107); Potassium 3.6 mmol/L (3.5-5.1); Sodium 139 mmol/L (136-145)
[2024-03-24 05:09] LABS: Anion Gap 6 (5-15); Calcium 7.8 mg/dL (8.7-10.4); Carbon Dioxide 25 mmol/L (20-30)
[2024-03-24 05:14] LABS: BUN/Creatinine Ratio 31.6 (10.0-20.0); Blood Urea Nitrogen 37 mg/dL (9-23); Glucose 182 mg/dL (74-106)
[2024-03-24] MEDS: amLODIPine BESYLATE 5 MG TAB PO ONE (14:27)
[2024-03-24] MEDS: guaiFENesin 200 MG/10 ML UD PO PRN (21:34)
[2024-03-25] VITALS (22 sets, daily range): BP systolic 117–175; BP diastolic 67–92; PULSE 83–126; RESP 2–28; TEMP 97.7–98.5; O2SAT 78–99
[2024-03-25 06:12] LABS: Anion Gap 6 (5-15); Carbon Dioxide 26 mmol/L (20-30); Chloride 108 mmol/L (98-107); Potassium 3.5 mmol/L (3.5-5.1); Sodium 140 mmol/L (136-145)
[2024-03-25 06:13] LABS: Calcium 7.9 mg/dL (8.5-10.1)
[2024-03-25 06:15] LABS: Mean Corpuscular Hemoglobin 34.6 pg (28.0-32.0)
[2024-03-25 06:16] LABS: Hematocrit 32.6 % (41.0-53.0); Mean Corpuscular Hgb Conc. 33.7 g/dL (32.0-36.0); Mean Corpuscular Volume 102.9 fL (80.0-100.0); Red Blood Cells 3.17 10^6/uL (4.5-5.90); Red Cell Distribution Width 14.5 % (11.8-14.3); White Blood Cell 7.5 10^3/uL (4.4-10.8)
[2024-03-25 06:18] LABS: BUN/Creatinine Ratio 31.9 (10.0-20.0); Blood Urea Nitrogen 30 mg/dL (9-23); Glucose 144 mg/dL (74-106)
[2024-03-25 06:34] LABS: Basophils % (manual) 0 (0.0-2.0); Blast Cells 0; Eosinophils % (manual) 0 (0-7); Promyelocytes % 0; Reactive Lymphocytes 0
[2024-03-25 06:55] LABS: Band Neutrophils % (manual) 6; Lymphocytes % (manual) 3 (10.0-50.0); Metamyelocytes % 2; Monocytes % (manual) 8 (0-12); Myelocytes % 7; Platelet Estimate Adequate
[2024-03-25] MEDS: amLODIPine BESYLATE 5 MG TAB PO SCH (10:05)
[2024-03-25] MEDS: PIPERACILLIN-TAZOB 3.375GM 100 ML IV SCH (18:00)
[2024-03-25] MEDS: VANCOMYCIN 1GM/200ML 200 ML IV SCH (21:08)
[2024-03-25] MEDS: DOCUSATE SOD 100 MG CAP PO PRN (21:09)
[2024-03-26] VITALS (12 sets, daily range): BP systolic 112–130; BP diastolic 62–78; PULSE 61–82; RESP 17–20; TEMP 97.2–98.4; O2SAT 92–98
[2024-03-26] MEDS ORDERED: IPRATROPIUM BROM 0.5 MG/2.5ML INH SOL NEB PRN (22:00)
[2024-03-26] MEDS ORDERED: ALBUTEROL SULF 2.5 MG/0.5ML(0.5%) NEB SOLN NEB PRN (22:00)
[2024-03-27] VITALS (10 sets, daily range): BP systolic 119–140; BP diastolic 56–76; PULSE 56–87; RESP 14–18; TEMP 98.2–98.6; O2SAT 90–96
[2024-03-27 05:56] LABS: Anion Gap 5 (5-15); Carbon Dioxide 26 mmol/L (20-30); Chloride 109 mmol/L (98-107); Potassium 3.6 mmol/L (3.5-5.1); Sodium 140 mmol/L (136-145)
[2024-03-27 05:57] LABS: Calcium 7.7 mg/dL (8.7-10.4)
[2024-03-27 06:02] LABS: BUN/Creatinine Ratio 21.6 (10.0-20.0); Blood Urea Nitrogen 19 mg/dL (9-23); Glucose 202 mg/dL (74-106)
[2024-03-27] MEDS: VANCOMYCIN 1GM/200ML 200 ML IV SCH (21:33)
[2024-03-27] MEDS: MELATONIN 5 MG TAB PO ONE (22:52)
[2024-03-28] VITALS (12 sets, daily range): BP systolic 115–137; BP diastolic 63–72; PULSE 57–74; RESP 16–18; TEMP 97.6–98.4; O2SAT 90–97
[2024-03-28 09:58] LABS: Hematocrit 33.1 % (41.0-53.0); Hemoglobin 10.7 g/dL (13.5-17.5); Mean Corpuscular Hemoglobin 33.8 pg (28.0-32.0); Mean Corpuscular Hgb Conc. 32.4 g/dL (32.0-36.0); Mean Corpuscular Volume 104.2 fL (80.0-100.0); Red Blood Cells 3.18 10^6/uL (4.5-5.90); Red Cell Distribution Width 14.5 % (11.8-14.3); White Blood Cell 9.9 10^3/uL (4.4-10.8)
[2024-03-28 10:07] LABS: Alanine Aminotransferase 50 U/L (7-40); Albumin 2.2 g/dL (3.2-4.8); Alkaline Phosphatase 93 U/L (46-116); Anion Gap 5 (5-15); Aspartate Aminotransferase 29 U/L (13-40); BUN/Creatinine Ratio 22.9 (10.0-20.0); Blood Urea Nitrogen 19 mg/dL (9-23); Calcium 7.8 mg/dL (8.5-10.1); Carbon Dioxide 26 mmol/L (20-30); Chloride 109 mmol/L (98-107); Glucose 140 mg/dL (74-106); Potassium 3.6 mmol/L (3.5-5.1); Sodium 140 mmol/L (136-145)
[2024-03-28 10:08] LABS: Bilirubin, Total 0.6 mg/dL (0.2-1.0); Total Protein 4.2 g/dL (5.7-8.2)
[2024-03-28 10:30] LABS: Basophils % (manual) 0 (0.0-2.0); Blast Cells 0; Eosinophils % (manual) 0 (0-7); Myelocytes % 0; Promyelocytes % 0; Reactive Lymphocytes 0
[2024-03-28 11:32] LABS: Band Neutrophils % (manual) 3; Lymphocytes % (manual) 7 (10.0-50.0); Metamyelocytes % 2; Monocytes % (manual) 4 (0-12)
[2024-03-28 11:35] LABS: Macrocytosis Slight; Platelet Estimate Adequate
[2024-03-29] VITALS (10 sets, daily range): BP systolic 102–143; BP diastolic 49–84; PULSE 61–89; RESP 16–20; TEMP 36.7; O2SAT 92–98
[2024-03-29] MEDS: MELATONIN 5 MG TAB PO SCH (00:05)
[2024-03-29 07:51] LABS: INR 1.05 (0.9-1.15); Partial Thromboplastin Time 22.7 SEC (24.5-34.5); Prothrombin Time 11.1 sec (9.3-11.8)
[2024-03-29] MEDS: cefTRIAXone 2GM/50ML D5W 50 ML IV SCH (08:53)
[2024-03-29] MEDS ORDERED: MELATONIN 5 MG TAB PO SCH (22:00)
[2024-03-30] VITALS (9 sets, daily range): BP systolic 110–150; BP diastolic 60–109; PULSE 59–98; RESP 16–21; TEMP 97.7–98.6; O2SAT 92–98
[2024-03-30 06:19] LABS: Basophils # (auto) 0 10 ^3/uL (0-0.2); Eosinophils # (auto) 0 10 ^3/uL (0-0.8); Hematocrit 31.3 % (41.0-53.0); Lymphocytes # (auto) 0.4 10 ^3/uL (0.4-5.4); Neutrophils # (auto) 10.4 10 ^3/uL (1.6-8.6); Red Cell Distribution Width 14.2 % (11.8-14.3)
[2024-03-30 06:21] LABS: Basophils % (auto) 0.1 % (0.0-2.0); Hemoglobin 10.3 g/dL (13.5-17.5); Lymphocytes % (auto) 3.5 % (10.0-50.0); Mean Corpuscular Hemoglobin 34.6 pg (28.0-32.0); Mean Corpuscular Hgb Conc. 32.9 g/dL (32.0-36.0); Monocytes # (auto) 0.6 10 ^3/uL (0-1.3); Monocytes % (auto) 5.3 % (0.0-12.0); Neutrophils % (auto) 91.1 % (37.0-80.0); Red Blood Cells 2.98 10^6/uL (4.5-5.90); White Blood Cell 11.5 10^3/uL (4.4-10.8)
[2024-03-30 06:25] LABS: Anion Gap 6 (5-15); Carbon Dioxide 25 mmol/L (20-30); Chloride 109 mmol/L (98-107); Potassium 3.7 mmol/L (3.5-5.1); Sodium 140 mmol/L (136-145)
[2024-03-30 06:31] LABS: BUN/Creatinine Ratio 21.7 (10.0-20.0); Blood Urea Nitrogen 18 mg/dL (9-23); Glucose 196 mg/dL (74-106)
[2024-03-30] MEDS: LIDOCAINE 1% (LOCAL ANESTH.) PF 5ml SDV ID ONE (10:10)
[2024-03-30] MEDS ORDERED: guaiFENesin-CODEINE Liq 5 ML UD PO PRN (15:30)
[2024-03-30] MEDS: PROMETHAZINE W/CODEINE 5 ML ORAL SYRUP PO PRN (16:15)
[2024-03-30] MEDS: FUROSEMIDE 20 MG/2 ML VIAL IV ONE (16:15)
[2024-03-30] MEDS: SODIUM CHLOR 0.9% PF (SALINE LOCK) 10ML VIAL/SYR IV SCH (20:50)
[2024-03-30] MEDS: TEMAZEPAM 15 MG CAP PO PRN (23:21)
[2024-03-31] VITALS (10 sets, daily range): BP systolic 109–145; BP diastolic 56–79; PULSE 66–95; RESP 18–22; TEMP 97.5–98.9; O2SAT 93–97
[2024-03-31 13:14] LABS: Magnesium 1.5 mg/dL (1.6-2.6)
[2024-03-31] MEDS: MIDAZOLAM HCL 2MG/2ML 2ml VIAL (1mg/ml) ONE (13:25)
[2024-03-31] MEDS: fentaNYL CITRATE 100 MCG/2 ML VL ONE (13:25)
[2024-04-01] VITALS (11 sets, daily range): BP systolic 105–168; BP diastolic 51–78; PULSE 63–81; RESP 17–20; TEMP 97.2–98; O2SAT 81–100
[2024-04-01] MEDS: FUROSEMIDE 20 MG/2 ML VIAL IV ONE (23:49)
[2024-04-02] VITALS (11 sets, daily range): BP systolic 117–147; BP diastolic 66–87; PULSE 60–85; RESP 17–20; TEMP 97.7–98.7; O2SAT 92–98
[2024-04-02] MEDS: methylPREDNISolone SOD SUCC 40 MG/ML VL IV SCH (02:08)
[2024-04-02] MEDS: FUROSEMIDE 20 MG/2 ML VIAL IV SCH (17:35)
[2024-04-02] MEDS: predniSONE 20 MG TAB PO SCH (22:27)
[2024-04-02] MEDS: POTASSIUM CHLORIDE 8 MEQ TAB PO SCH (22:27)
[2024-04-03] VITALS (10 sets, daily range): BP systolic 126–140; BP diastolic 61–87; PULSE 67–90; RESP 14–20; TEMP 97.8–98.9; O2SAT 92–98
[2024-04-03] MEDS: CEFEPIME 2GM/50ML NS 50 ML IV SCH (05:47)
[2024-04-03 07:23] LABS: Basophils # (auto) 0 10 ^3/uL (0-0.2); Basophils % (auto) 0.2 % (0.0-2.0); Eosinophils # (auto) 0 10 ^3/uL (0-0.8); Eosinophils % (auto) 0.1 % (0.0-7.0); Hematocrit 38.1 % (41.0-53.0); Hemoglobin 12.3 g/dL (13.5-17.5); Lymphocytes # (auto) 0.7 10 ^3/uL (0.4-5.4); Lymphocytes % (auto) 6.5 % (10.0-50.0); Mean Corpuscular Hemoglobin 33.4 pg (28.0-32.0); Mean Corpuscular Hgb Conc. 32.2 g/dL (32.0-36.0); Mean Corpuscular Volume 103.8 fL (80.0-100.0); Monocytes # (auto) 0.8 10 ^3/uL (0-1.3); Monocytes % (auto) 6.7 % (0.0-12.0); Neutrophils # (auto) 10.1 10 ^3/uL (1.6-8.6); Neutrophils % (auto) 86.5 % (37.0-80.0); Red Blood Cells 3.68 10^6/uL (4.5-5.90); Red Cell Distribution Width 14.1 % (11.8-14.3); White Blood Cell 11.6 10^3/uL (4.4-10.8)
[2024-04-03 07:34] LABS: Anion Gap 7 (5-15); Calcium 8.6 mg/dL (8.5-10.1); Carbon Dioxide 32 mmol/L (20-30); Chloride 102 mmol/L (98-107); Sodium 141 mmol/L (136-145)
[2024-04-03 07:40] LABS: BUN/Creatinine Ratio 21.3 (10.0-20.0); Blood Urea Nitrogen 16 mg/dL (9-23); Glucose 152 mg/dL (74-106); Magnesium 1.5 mg/dL (1.6-2.6)
[2024-04-03] MEDS: MULTIPLE VITAMINS W/ MINERALS TAB PO SCH (09:20)
[2024-04-03 11:07] LABS: Vitamin D 25-Hydroxy 15 ng/mL (.); Vitamin D-2 25-Hydroxy <1.0 ng/mL (.); Vitamin D-3 25-Hydroxy 15 ng/mL (.)
[2024-04-03 14:05] LABS: INR 1.03 (0.9-1.15); Partial Thromboplastin Time 20.8 SEC (24.5-34.5); Prothrombin Time 10.9 sec (9.3-11.8)
[2024-04-04] VITALS (12 sets, daily range): BP systolic 116–133; BP diastolic 61–74; PULSE 68–95; RESP 14–20; TEMP 37.2; O2SAT 91–98
[2024-04-04] MEDS: POTASSIUM CHL 10 Meq TABLET PO SCH (09:28)
[2024-04-04] MEDS: LIDOCAINE 2%HCL (LOCAL ANESTH.) INJ 20ML MDV ONE (15:25)
[2024-04-04] MEDS: fentaNYL CITRATE 100 MCG/2 ML VL ONE (15:40)
[2024-04-04] MEDS: MIDAZOLAM HCL 2MG/2ML 2ml VIAL (1mg/ml) ONE (15:40)
[2024-04-05] VITALS (8 sets, daily range): BP systolic 93–121; BP diastolic 54–76; PULSE 75–104; RESP 18–20; TEMP 98–99.2; O2SAT 90–96
[2024-04-05 06:04] LABS: Anion Gap 4 (5-15); Basophils # (auto) 0 10 ^3/uL (0-0.2); Carbon Dioxide 33 mmol/L (20-30); Chloride 99 mmol/L (98-107); Eosinophils # (auto) 0 10 ^3/uL (0-0.8); Eosinophils % (auto) 0.1 % (0.0-7.0); Lymphocytes # (auto) 0.5 10 ^3/uL (0.4-5.4); Monocytes # (auto) 0.7 10 ^3/uL (0-1.3); Monocytes % (auto) 4.5 % (0.0-12.0); Potassium 4.3 mmol/L (3.5-5.1)
[2024-04-05 06:05] LABS: Calcium 8.1 mg/dL (8.5-10.1)
[2024-04-05 06:08] LABS: Basophils % (auto) 0.1 % (0.0-2.0); Hemoglobin 11.5 g/dL (13.5-17.5); Lymphocytes % (auto) 2.9 % (10.0-50.0); Mean Corpuscular Hemoglobin 33.9 pg (28.0-32.0); Mean Corpuscular Hgb Conc. 32.7 g/dL (32.0-36.0); Mean Corpuscular Volume 103.7 fL (80.0-100.0); Neutrophils # (auto) 14.8 10 ^3/uL (1.6-8.6); Neutrophils % (auto) 92.4 % (37.0-80.0); Red Blood Cells 3.38 10^6/uL (4.5-5.90); Red Cell Distribution Width 14.8 % (11.8-14.3)
[2024-04-05 06:10] LABS: Glucose 145 mg/dL (74-106)
[2024-04-05 06:24] LABS: Sodium 136 mmol/L (136-145)
[2024-04-05 07:42] LABS: BUN/Creatinine Ratio 19.3 (10.0-20.0); Blood Urea Nitrogen 17 mg/dL (9-23)
[2024-04-05] MEDS: SORE THROAT SPRAY 6OZ BOTTLE MT PRN (17:41)
[2024-04-06] VITALS (10 sets, daily range): BP systolic 107–131; BP diastolic 60–77; PULSE 75–108; RESP 16–18; TEMP 97.8–99.8; O2SAT 91–98
[2024-04-07] VITALS (9 sets, daily range): BP systolic 109–138; BP diastolic 63–73; PULSE 70–117; RESP 16–20; TEMP 97.9–99.7; O2SAT 94–97
[2024-04-07] MEDS: LIDOCAINE 2%HCL (LOCAL ANESTH.) INJ 10ml MDV ONE (10:18)
[2024-04-08] VITALS (12 sets, daily range): BP systolic 99–131; BP diastolic 54–80; PULSE 70–108; RESP 15–20; TEMP 97.8–99.2; O2SAT 93–100
[2024-04-08 06:43] LABS: Basophils # (auto) 0 10 ^3/uL (0-0.2); Eosinophils # (auto) 0 10 ^3/uL (0-0.8); Eosinophils % (auto) 0.2 % (0.0-7.0); Lymphocytes # (auto) 0.7 10 ^3/uL (0.4-5.4); Monocytes # (auto) 0.5 10 ^3/uL (0-1.3); Neutrophils % (auto) 87.5 % (37.0-80.0)
[2024-04-08 06:47] LABS: Basophils % (auto) 0.3 % (0.0-2.0); Hematocrit 35.7 % (41.0-53.0); Hemoglobin 12.1 g/dL (13.5-17.5); Lymphocytes % (auto) 6.6 % (10.0-50.0); Mean Corpuscular Hemoglobin 35.1 pg (28.0-32.0); Mean Corpuscular Hgb Conc. 33.9 g/dL (32.0-36.0); Mean Corpuscular Volume 103.3 fL (80.0-100.0); Monocytes % (auto) 5.4 % (0.0-12.0); Neutrophils # (auto) 8.7 10 ^3/uL (1.6-8.6); Red Blood Cells 3.46 10^6/uL (4.5-5.90); Red Cell Distribution Width 13.6 % (11.8-14.3)
[2024-04-09] VITALS (7 sets, daily range): BP systolic 103–128; BP diastolic 65–80; PULSE 74–101; RESP 18–20; TEMP 98.1–98.6; O2SAT 92–95
[2024-04-09 06:20] LABS: Basophils # (auto) 0 10 ^3/uL (0-0.2); Basophils % (auto) 0.2 % (0.0-2.0); Eosinophils # (auto) 0 10 ^3/uL (0-0.8); Eosinophils % (auto) 0.1 % (0.0-7.0); Hematocrit 37.8 % (41.0-53.0); Hemoglobin 12.4 g/dL (13.5-17.5); Lymphocytes # (auto) 0.8 10 ^3/uL (0.4-5.4); Lymphocytes % (auto) 6.9 % (10.0-50.0); Mean Corpuscular Hemoglobin 33.7 pg (28.0-32.0); Mean Corpuscular Volume 102.2 fL (80.0-100.0); Monocytes # (auto) 0.5 10 ^3/uL (0-1.3); Neutrophils # (auto) 10.7 10 ^3/uL (1.6-8.6); Neutrophils % (auto) 88.8 % (37.0-80.0); Red Cell Distribution Width 13.8 % (11.8-14.3); White Blood Cell 12.1 10^3/uL (4.4-10.8)
[2024-04-10] VITALS (14 sets, daily range): BP systolic 105–130; BP diastolic 70–88; PULSE 74–110; RESP 16–19; TEMP 98.1–98.8; O2SAT 94–99
[2024-04-10 06:48] LABS: Basophils # (auto) 0 10 ^3/uL (0-0.2); Eosinophils # (auto) 0 10 ^3/uL (0-0.8); Eosinophils % (auto) 0.2 % (0.0-7.0); Lymphocytes # (auto) 0.9 10 ^3/uL (0.4-5.4); Monocytes # (auto) 0.5 10 ^3/uL (0-1.3); Red Blood Cells 3.49 10^6/uL (4.5-5.90); White Blood Cell 9.4 10^3/uL (4.4-10.8)
[2024-04-10 06:50] LABS: Basophils % (auto) 0.2 % (0.0-2.0); Hematocrit 35.7 % (41.0-53.0); Hemoglobin 11.9 g/dL (13.5-17.5); Lymphocytes % (auto) 9.4 % (10.0-50.0); Mean Corpuscular Hgb Conc. 33.2 g/dL (32.0-36.0); Mean Corpuscular Volume 102.3 fL (80.0-100.0); Monocytes % (auto) 5.5 % (0.0-12.0); Neutrophils # (auto) 7.9 10 ^3/uL (1.6-8.6); Neutrophils % (auto) 84.7 % (37.0-80.0)
[2024-04-10] MEDS ORDERED: ALBUTEROL SULF 2.5 MG/0.5ML(0.5%) NEB SOLN NEB SCH (14:00)
[2024-04-10] MEDS: IPRATROPIUM BROM 0.5 MG/2.5ML INH SOL NEB SCH (14:17)
[2024-04-11] VITALS (20 sets, daily range): BP systolic 107–143; BP diastolic 54–78; PULSE 59–117; RESP 16–19; TEMP 97.8–98.6; O2SAT 92–97
[2024-04-11 06:35] LABS: Hemoglobin 11.4 g/dL (13.5-17.5); Red Cell Distribution Width 14.1 % (11.8-14.3)
[2024-04-11 06:37] LABS: Hematocrit 34.1 % (41.0-53.0); Mean Corpuscular Hemoglobin 34.7 pg (28.0-32.0); Mean Corpuscular Hgb Conc. 33.5 g/dL (32.0-36.0); Mean Corpuscular Volume 103.7 fL (80.0-100.0); Red Blood Cells 3.29 10^6/uL (4.5-5.90); White Blood Cell 9.6 10^3/uL (4.4-10.8)
[2024-04-11 07:15] LABS: Basophils % (manual) 0 (0.0-2.0); Blast Cells 0; Eosinophils % (manual) 0 (0-7); Myelocytes % 0; Promyelocytes % 0; Reactive Lymphocytes 0
[2024-04-11 08:06] LABS: Band Neutrophils % (manual) 10
[2024-04-11 08:07] LABS: Lymphocytes % (manual) 12 (10.0-50.0); Macrocytosis Slight; Metamyelocytes % 2; Monocytes % (manual) 4 (0-12); Platelet Estimate Adequate
[2024-04-12] VITALS (21 sets, daily range): BP systolic 114–134; BP diastolic 62–101; PULSE 75–113; RESP 18–20; TEMP 96.8–98.4; O2SAT 92–100
[2024-04-12 05:56] LABS: Mean Corpuscular Hemoglobin 34.9 pg (28.0-32.0)
[2024-04-12 06:00] LABS: Hematocrit 34.6 % (41.0-53.0); Hemoglobin 11.7 g/dL (13.5-17.5); Mean Corpuscular Hgb Conc. 33.9 g/dL (32.0-36.0); Mean Corpuscular Volume 103.1 fL (80.0-100.0); Red Blood Cells 3.36 10^6/uL (4.5-5.90); Red Cell Distribution Width 13.8 % (11.8-14.3); White Blood Cell 9.6 10^3/uL (4.4-10.8)
[2024-04-12 06:01] LABS: Basophils % (manual) 0 (0.0-2.0); Blast Cells 0; Eosinophils % (manual) 0 (0-7); Metamyelocytes % 0; Myelocytes % 0; Promyelocytes % 0; Reactive Lymphocytes 0
[2024-04-12 06:21] LABS: Band Neutrophils % (manual) 4; Lymphocytes % (manual) 10 (10.0-50.0); Monocytes % (manual) 6 (0-12)
[2024-04-12 06:22] LABS: Macrocytosis Slight; Platelet Estimate Adequate
[2024-04-13] VITALS (21 sets, daily range): BP systolic 111–123; BP diastolic 67–83; PULSE 68–110; RESP 14–20; TEMP 97.9–98.7; O2SAT 93–100
[2024-04-13 05:38] LABS: Hemoglobin 11.6 g/dL (13.5-17.5)
[2024-04-13 05:42] LABS: Hematocrit 33.9 % (41.0-53.0); Mean Corpuscular Hemoglobin 34.7 pg (28.0-32.0); Mean Corpuscular Hgb Conc. 34.1 g/dL (32.0-36.0); Mean Corpuscular Volume 101.6 fL (80.0-100.0); Red Blood Cells 3.34 10^6/uL (4.5-5.90); Red Cell Distribution Width 13.8 % (11.8-14.3); White Blood Cell 8.9 10^3/uL (4.4-10.8)
[2024-04-13 05:52] LABS: Basophils % (manual) 0 (0.0-2.0); Blast Cells 0; Eosinophils % (manual) 0 (0-7); Myelocytes % 0; Promyelocytes % 0; Reactive Lymphocytes 0
[2024-04-13 07:21] LABS: Band Neutrophils % (manual) 4; Lymphocytes % (manual) 17 (10.0-50.0); Metamyelocytes % 1; Monocytes % (manual) 4 (0-12)
[2024-04-13 07:23] LABS: Macrocytosis Slight; Platelet Estimate Adequate
[2024-04-14] VITALS (22 sets, daily range): BP systolic 122–142; BP diastolic 62–94; PULSE 68–111; RESP 15–25; TEMP 98–99.2; O2SAT 93–100
[2024-04-14 06:09] LABS: Hematocrit 33.2 % (41.0-53.0); Hemoglobin 11.5 g/dL (13.5-17.5); Mean Corpuscular Hgb Conc. 34.6 g/dL (32.0-36.0)
[2024-04-14 06:11] LABS: Mean Corpuscular Hemoglobin 35.1 pg (28.0-32.0); Mean Corpuscular Volume 101.4 fL (80.0-100.0); Red Blood Cells 3.28 10^6/uL (4.5-5.90); White Blood Cell 8.7 10^3/uL (4.4-10.8)
[2024-04-14 06:14] LABS: Chloride 103 mmol/L (98-107); Potassium 4.3 mmol/L (3.5-5.1); Sodium 136 mmol/L (136-145)
[2024-04-14 06:15] LABS: Anion Gap 5 (5-15); Carbon Dioxide 28 mmol/L (20-30)
[2024-04-14 06:16] LABS: Calcium 8.8 mg/dL (8.5-10.1)
[2024-04-14 06:21] LABS: BUN/Creatinine Ratio 22.9 (10.0-20.0); Blood Urea Nitrogen 22 mg/dL (9-23); Glucose 130 mg/dL (74-106)
[2024-04-14 06:26] LABS: Basophils % (manual) 0 (0.0-2.0); Blast Cells 0; Eosinophils % (manual) 0 (0-7); Metamyelocytes % 0; Myelocytes % 0; Promyelocytes % 0; Reactive Lymphocytes 0
[2024-04-14 07:26] LABS: Band Neutrophils % (manual) 4; Lymphocytes % (manual) 27 (10.0-50.0); Monocytes % (manual) 3 (0-12); Platelet Estimate Adequate
[2024-04-14] MEDS: KETAMINE 50mg/ML 10ml Vial (500mg/10ml) IV ONE (23:31)
[2024-04-15] VITALS (36 sets, daily range): BP systolic 94–140; BP diastolic 48–81; PULSE 72–110; RESP 12–24; TEMP 98.2–99.3; O2SAT 85–100
[2024-04-15] MEDS ORDERED: MORPHINE SULFATE INJ 2 MG/ml SYRG IV PRN (03:30)
[2024-04-15] MEDS: HYDROcodone-ACET 5/325MG TAB PO PRN (03:39)
[2024-04-15] MEDS: HYDROcodone-ACET 5/325MG TAB ONE (03:44)
[2024-04-15 05:43] LABS: Hematocrit 34.9 % (41.0-53.0); Hemoglobin 11.8 g/dL (13.5-17.5); Mean Corpuscular Hemoglobin 34.5 pg (28.0-32.0); Mean Corpuscular Hgb Conc. 33.9 g/dL (32.0-36.0); Mean Corpuscular Volume 101.8 fL (80.0-100.0); Red Blood Cells 3.43 10^6/uL (4.5-5.90); Red Cell Distribution Width 14.1 % (11.8-14.3); White Blood Cell 10.6 10^3/uL (4.4-10.8)
[2024-04-15 05:45] LABS: Band Neutrophils % (manual) 0; Basophils % (manual) 0 (0.0-2.0); Blast Cells 0; Promyelocytes % 0; Reactive Lymphocytes 0
[2024-04-15 08:17] LABS: Eosinophils % (manual) 1 (0-7); Lymphocytes % (manual) 15 (10.0-50.0); Metamyelocytes % 1; Monocytes % (manual) 2 (0-12); Myelocytes % 6; Platelet Estimate Adequate
[2024-04-15] MEDS: PROMETHAZINE W/CODEINE 5 ML ORAL SYRUP PO PRN (10:35)
[2024-04-15] MEDS: ENOXAPARIN SOD 40 MG/0.4 ML SYRINGE SC SCH (15:21)
[2024-04-15] MEDS: IPRATROPIUM BROM 0.5 MG/2.5ML INH SOL NEB PRN (19:33)
[2024-04-16] VITALS (38 sets, daily range): BP systolic 82–129; BP diastolic 37–111; PULSE 70–135; RESP 12–30; TEMP 97.7–100; O2SAT 89–98
[2024-04-16 00:25] LABS: Urine Bacteria None Seen /hpf (None Seen)
[2024-04-16 00:43] LABS: Urine Blood Negative /uL (Negative); Urine Clarity Clear (Clear); Urine Color Yellow (Yellow); Urine Mucus FEW (None Seen); Urine Protein, UAD TRACE (Negative); Urine Specific Gravity 1.025 (1.001-1.035); Urine Urobilinogen Normal (Negative); Urine WBC <1 /hpf (0 - 3); Urine pH 5.5 (5.0-9.0)
[2024-04-16 05:37] LABS: Hemoglobin 11.4 g/dL (13.5-17.5); Mean Corpuscular Hemoglobin 34.6 pg (28.0-32.0)
[2024-04-16 05:40] LABS: Hematocrit 33.6 % (41.0-53.0); Mean Corpuscular Volume 101.9 fL (80.0-100.0); Red Cell Distribution Width 13.8 % (11.8-14.3); White Blood Cell 7.5 10^3/uL (4.4-10.8)
[2024-04-16 05:51] LABS: Basophils % (manual) 0 (0.0-2.0); Blast Cells 0; Metamyelocytes % 0; Myelocytes % 0; Promyelocytes % 0
[2024-04-16 05:53] LABS: Alanine Aminotransferase 74 U/L (7-40); Albumin 3.1 g/dL (3.2-4.8); Alkaline Phosphatase 111 U/L (46-116); Anion Gap 3 (5-15); Aspartate Aminotransferase 28 U/L (13-40); BUN/Creatinine Ratio 19.4 (10.0-20.0); Bilirubin, Total 0.2 mg/dL (0.2-1.0); Blood Urea Nitrogen 21 mg/dL (9-23); Calcium 9.1 mg/dL (8.7-10.4); Carbon Dioxide 32 mmol/L (20-30); Chloride 103 mmol/L (98-107); Glucose 120 mg/dL (74-106); Potassium 3.8 mmol/L (3.5-5.1); Sodium 138 mmol/L (136-145); Total Protein 5.5 g/dL (5.7-8.2)
[2024-04-16 06:54] LABS: Band Neutrophils % (manual) 2; Eosinophils % (manual) 1 (0-7); Lymphocytes % (manual) 32 (10.0-50.0); Macrocytosis Slight; Monocytes % (manual) 6 (0-12); Platelet Estimate Adequate; Reactive Lymphocytes 5
[2024-04-16] MEDS ORDERED: VANCOMYCIN PER PHARMACY 0 MG IV SCH (08:45)
[2024-04-16] MEDS: VANCOMYCIN 1GM/200ML 200 ML IV ONE (08:45)
[2024-04-16 09:02] LABS: INR 0.97 (0.9-1.15); Partial Thromboplastin Time 22.5 SEC (24.5-34.5); Prothrombin Time 10.3 sec (9.3-11.8)
[2024-04-16] MEDS: SUCCINYLCHOLINE CHLORIDE 20 MG/ML 10ML VIAL IV ONE (09:49)
[2024-04-16] MEDS ORDERED: fentaNYL CITRATE 100 MCG/2 ML VL ONE ×2 (09:52→11:19)
[2024-04-16] MEDS: predniSONE 20 MG TAB PO SCH (10:00)
[2024-04-16] MEDS ORDERED: CLOPIDOGREL BISULFATE 75 MG TAB PO SCH (10:00)
[2024-04-16] MEDS: POTASSIUM CHLORIDE 8 MEQ TAB PO SCH (10:00)
[2024-04-16] MEDS: FUROSEMIDE 20 MG/2 ML VIAL IV SCH (10:00)
[2024-04-16] MEDS ORDERED: MIDAZOLAM HCL 2MG/2ML 2ml VIAL (1mg/ml) ONE (10:25)
[2024-04-16] MEDS ORDERED: ROCURONIUM 10MG/ML 10ML VIAL IV ONE ×2 (10:48→13:31)
[2024-04-16] MEDS ORDERED: fentaNYL CITRATE 5 ML ONE ×2 (11:31→13:25)
[2024-04-16] MEDS: PIPERACILLIN-TAZOB 3.375GM 100 ML IV SCH (12:00)
[2024-04-16] MEDS: BUPIVACAINE 0.25% INJ 50ML VIAL ONE (12:01)
[2024-04-16] MEDS ORDERED: MEPERIDINE HCL (25 MG/ML) 1ML VIAL ONE ×2 (12:42→13:35)
[2024-04-16] MEDS ORDERED: SUGAMMADEX 200mg/2ml Vial (100MG/ML) IV ONE (15:01)
[2024-04-16] MEDS: MEPERIDINE HCL (25 MG/ML) 1ML VIAL IV ONE (15:44)
[2024-04-16] MEDS ORDERED: MORPHINE SULFATE 4 MG/ML SYR/VIAL IV PRN ×3 (16:00→16:45)
[2024-04-16] MEDS ORDERED: HYDROmorphone HCL 2 MG/ML VL/or syr IV PRN (16:15)
[2024-04-16] MEDS: ONDANSETRON HCL 4 MG/2 ML VIAL IV ONE (16:15)
[2024-04-16] MEDS ORDERED: MEPERIDINE HCL (25 MG/ML) 1ML VIAL IV PRN (16:15)
[2024-04-16] MEDS ORDERED: SODIUM CHLORIDE 0.9% 500 ML IV SCH (16:15)
[2024-04-16] MEDS ORDERED: D5W/SOD CHL 0.45% 1,000 ML IV SCH (16:30)
[2024-04-16] MEDS ORDERED: POTASSIUM CHL 20MEQ/100ML 100 ML IV PRN (16:30)
[2024-04-16 16:55] LABS: Base Excess -2.6 mmol/L (-2.0-2.0)
[2024-04-16 17:38] LABS: Basophils # (auto) 0 10 ^3/uL (0-0.2); Basophils % (auto) 0.2 % (0.0-2.0); Eosinophils # (auto) 0.1 10 ^3/uL (0-0.8); Eosinophils % (auto) 0.3 % (0.0-7.0); Hematocrit 37.4 % (41.0-53.0); Hemoglobin 12.2 g/dL (13.5-17.5); Lymphocytes % (auto) 28.6 % (10.0-50.0); Mean Corpuscular Hemoglobin 33.1 pg (28.0-32.0); Mean Corpuscular Hgb Conc. 32.7 g/dL (32.0-36.0); Mean Corpuscular Volume 101.4 fL (80.0-100.0); Monocytes # (auto) 0.7 10 ^3/uL (0-1.3); Monocytes % (auto) 3.9 % (0.0-12.0); Neutrophils # (auto) 11.8 10 ^3/uL (1.6-8.6); Nucleated Red Blood Cells % 0.3 %; Red Blood Cells 3.69 10^6/uL (4.5-5.90); Red Cell Distribution Width 14.4 % (11.8-14.3); White Blood Cell 17.6 10^3/uL (4.4-10.8)
[2024-04-16] MEDS ORDERED: ACETAMINOPHEN IV 1000 MG/100ML (10MG/ML) IV PRN (17:45)
[2024-04-16] MEDS: ALBUTEROL SULF 2.5 MG/0.5ML(0.5%) NEB SOLN NEB SCH (17:49)
[2024-04-16 17:57] LABS: Alanine Aminotransferase 59 U/L (7-40); Albumin 3.6 g/dL (3.2-4.8); Alkaline Phosphatase 78 U/L (46-116); Anion Gap 8 (5-15); Aspartate Aminotransferase 42 U/L (13-40); BUN/Creatinine Ratio 11.6 (10.0-20.0); Blood Urea Nitrogen 18 mg/dL (9-23); Calcium 8.4 mg/dL (8.5-10.1); Carbon Dioxide 22 mmol/L (20-30); Chloride 106 mmol/L (98-107); Glucose 120 mg/dL (74-106); Magnesium 1.2 mg/dL (1.6-2.6); Potassium 4.2 mmol/L (3.5-5.1); Sodium 136 mmol/L (136-145)
[2024-04-16 17:58] LABS: Bilirubin, Total 0.4 mg/dL (0.2-1.0); Phosphorus 4.6 mg/dL (2.4-5.1); Total Protein 5.8 g/dL (5.7-8.2)
[2024-04-16] MEDS ORDERED: IPRATROPIUM BROM 0.5 MG/2.5ML INH SOL NEB SCH (18:00)
[2024-04-16] MEDS: ACETAMINOPHEN IV 1000 MG/100ML (10MG/ML) IV ONE (18:15)
[2024-04-16] MEDS: MEPERIDINE HCL (25 MG/ML) 1ML VIAL ONE (19:41)
[2024-04-16] MEDS: POTASSIUM CHL 20MEQ/100ML 100 ML IV ONE (19:41)
[2024-04-16] MEDS: SODIUM CHLORIDE 0.9% 500 ML IV SCH (19:42)
[2024-04-16] MEDS: ALBUMIN 25% 100 ML IV ONE ×2 (19:42)
[2024-04-16] MEDS: ACETAMINOPHEN IV 100 ML IV ONE (19:42)
[2024-04-16] MEDS: oxyCODONE HCL 5MG TAB PO PRN (20:38)
[2024-04-16] MEDS: MAGNESIUM SULFATE 1GM/100ML 100 ML IV SCH (20:40)
[2024-04-16] MEDS: D5W/SOD CHL 0.45%/KCL 20MEQ 1,000 ML IV SCH (20:41)
[2024-04-16] MEDS: VANCOMYCIN 750mg/150ml 150 ML IV SCH (21:01)
[2024-04-16] MEDS: IPRATROPIUM BROM 0.5 MG/2.5ML INH SOL NEB SCH (22:35)
[2024-04-17] VITALS (87 sets, daily range): BP systolic 87–148; BP diastolic 42–118; PULSE 86–125; RESP 0–72; TEMP 98.3–99.1; O2SAT 90–100
[2024-04-17 02:02] LABS: Hematocrit 31.4 % (41.0-53.0); Hemoglobin 10.2 g/dL (13.5-17.5); Mean Corpuscular Hemoglobin 33.1 pg (28.0-32.0); Mean Corpuscular Hgb Conc. 32.6 g/dL (32.0-36.0); Mean Corpuscular Volume 101.5 fL (80.0-100.0); Red Cell Distribution Width 14.1 % (11.8-14.3); White Blood Cell 11.3 10^3/uL (4.4-10.8)
[2024-04-17 02:09] LABS: Chloride 103 mmol/L (98-107); Potassium 4.6 mmol/L (3.5-5.1); Sodium 134 mmol/L (136-145)
[2024-04-17 02:10] LABS: Anion Gap 9 (5-15); Carbon Dioxide 22 mmol/L (20-30)
[2024-04-17 02:11] LABS: Basophils % (manual) 0 (0.0-2.0); Blast Cells 0; Eosinophils % (manual) 0 (0-7); Metamyelocytes % 0; Myelocytes % 0; Promyelocytes % 0; Reactive Lymphocytes 0
[2024-04-17 02:15] LABS: Glucose 149 mg/dL (74-106)
[2024-04-17 02:16] LABS: BUN/Creatinine Ratio 16.9 (10.0-20.0); Blood Urea Nitrogen 23 mg/dL (9-23); Magnesium 1.7 mg/dL (1.6-2.6)
[2024-04-17 02:18] LABS: Phosphorus 5.5 mg/dL (2.4-5.1)
[2024-04-17] MEDS: ACETAMINOPHEN IV 1000 MG/100ML (10MG/ML) IV PRN (03:01)
[2024-04-17 03:47] LABS: Band Neutrophils % (manual) 4; Lymphocytes % (manual) 23 (10.0-50.0); Macrocytosis Slight; Monocytes % (manual) 11 (0-12); Platelet Estimate Adequate
[2024-04-17] MEDS: MAGNESIUM SULFATE 1GM/100ML 100 ML IV SCH (04:07)
[2024-04-17 06:16] LABS: Basophils # (auto) 0.1 10 ^3/uL (0-0.2); Basophils % (auto) 0.6 % (0.0-2.0); Eosinophils # (auto) 0 10 ^3/uL (0-0.8); Eosinophils % (auto) 0.4 % (0.0-7.0); Hematocrit 29.6 % (41.0-53.0); Hemoglobin 9.8 g/dL (13.5-17.5); Lymphocytes # (auto) 2.6 10 ^3/uL (0.4-5.4); Lymphocytes % (auto) 26.5 % (10.0-50.0); Mean Corpuscular Hemoglobin 33.5 pg (28.0-32.0); Mean Corpuscular Hgb Conc. 33.1 g/dL (32.0-36.0); Mean Corpuscular Volume 101.2 fL (80.0-100.0); Monocytes # (auto) 0.4 10 ^3/uL (0-1.3); Monocytes % (auto) 3.9 % (0.0-12.0); Neutrophils # (auto) 6.6 10 ^3/uL (1.6-8.6); Neutrophils % (auto) 68.6 % (37.0-80.0); Red Blood Cells 2.92 10^6/uL (4.5-5.90); Red Cell Distribution Width 14.5 % (11.8-14.3); White Blood Cell 9.7 10^3/uL (4.4-10.8)
[2024-04-17 06:24] LABS: Anion Gap 5 (5-15); Carbon Dioxide 24 mmol/L (20-30); Chloride 103 mmol/L (98-107); Potassium 4.7 mmol/L (3.5-5.1); Sodium 132 mmol/L (136-145)
[2024-04-17 06:25] LABS: Calcium 7.8 mg/dL (8.5-10.1)
[2024-04-17 06:30] LABS: BUN/Creatinine Ratio 18.4 (10.0-20.0); Blood Urea Nitrogen 23 mg/dL (9-23); Glucose 162 mg/dL (74-106); Magnesium 2.3 mg/dL (1.6-2.6)
[2024-04-17 06:32] LABS: Phosphorus 5.5 mg/dL (2.4-5.1)
[2024-04-17 08:05] LABS: Base Excess -1.5 mmol/L (-2.0-2.0)
[2024-04-17] MEDS: D5W/SOD CHL 0.45%/KCL 20MEQ 1,000 ML IV SCH (14:23)
[2024-04-17] MEDS: oxyCODONE HCL 5MG TAB PO PRN (14:35)
[2024-04-17] MEDS: guaiFENesin 200 MG/10 ML UD PO PRN (17:21)
[2024-04-17] MEDS: LIDOCAINE 5% TOPICAL PATCH TOP ONE (17:22)
[2024-04-17] MEDS: SENNA 8.6 MG TAB PO SCH (21:24)
[2024-04-17] MEDS: METOPROLOL TARTRATE 50 MG TAB PO ONE (21:31)
[2024-04-18] VITALS (42 sets, daily range): BP systolic 99–150; BP diastolic 50–102; PULSE 78–124; RESP 10–24; TEMP 97.9–99.8; O2SAT 88–99
[2024-04-18 06:25] LABS: Chloride 101 mmol/L (98-107); Potassium 4.4 mmol/L (3.5-5.1); Sodium 135 mmol/L (136-145)
[2024-04-18 06:26] LABS: Anion Gap 6 (5-15); Calcium 8.2 mg/dL (8.7-10.4); Carbon Dioxide 28 mmol/L (20-30)
[2024-04-18] MEDS: VANCOMYCIN 1GM/200ML 200 ML IV SCH (06:30)
[2024-04-18 06:31] LABS: BUN/Creatinine Ratio 17.1 (10.0-20.0); Blood Urea Nitrogen 18 mg/dL (9-23); Glucose 146 mg/dL (74-106)
[2024-04-18 07:55] LABS: Basophils # (auto) 0 10 ^3/uL (0-0.2); Basophils % (auto) 0.2 % (0.0-2.0); Eosinophils # (auto) 0 10 ^3/uL (0-0.8); Eosinophils % (auto) 0.4 % (0.0-7.0); Nucleated Red Blood Cells % 0.1 %
[2024-04-18 07:57] LABS: Hemoglobin 9.3 g/dL (13.5-17.5); Lymphocytes # (auto) 2.4 10 ^3/uL (0.4-5.4); Lymphocytes % (auto) 24.7 % (10.0-50.0); Mean Corpuscular Hemoglobin 33.9 pg (28.0-32.0); Mean Corpuscular Hgb Conc. 33.2 g/dL (32.0-36.0); Mean Corpuscular Volume 102.1 fL (80.0-100.0); Monocytes # (auto) 0.6 10 ^3/uL (0-1.3); Monocytes % (auto) 5.9 % (0.0-12.0); Neutrophils # (auto) 6.6 10 ^3/uL (1.6-8.6); Neutrophils % (auto) 68.8 % (37.0-80.0); Red Blood Cells 2.75 10^6/uL (4.5-5.90); Red Cell Distribution Width 14.3 % (11.8-14.3); White Blood Cell 9.6 10^3/uL (4.4-10.8)
[2024-04-18] MEDS: LIDOCAINE 5% TOPICAL PATCH TOP SCH (10:39)
[2024-04-18] MEDS: MULTIPLE VITAMINS W/ MINERALS TAB PO ONE (10:50)
[2024-04-18] MEDS: MORPHINE SULFATE INJ 2 MG/ml SYRG IV PRN (14:16)
[2024-04-18] MEDS: diphenhdrAMINE HCL 25 MG CAP PO PRN (21:55)
[2024-04-19] VITALS (34 sets, daily range): BP systolic 107–146; BP diastolic 58–89; PULSE 90–125; RESP 11–24; TEMP 98.6–100.8; O2SAT 86–100
[2024-04-19 04:39] LABS: Alanine Aminotransferase 39 U/L (7-40); Albumin 2.5 g/dL (3.2-4.8); Alkaline Phosphatase 63 U/L (46-116); Anion Gap 3 (5-15); Aspartate Aminotransferase 42 U/L (13-40); BUN/Creatinine Ratio 14.3 (10.0-20.0); Blood Urea Nitrogen 12 mg/dL (9-23); Calcium 7.8 mg/dL (8.5-10.1); Carbon Dioxide 29 mmol/L (20-30); Chloride 101 mmol/L (98-107); Glucose 105 mg/dL (74-106); Potassium 3.9 mmol/L (3.5-5.1); Sodium 133 mmol/L (136-145)
[2024-04-19 04:40] LABS: Bilirubin, Total 0.4 mg/dL (0.2-1.0); Total Protein 4.5 g/dL (5.7-8.2)
[2024-04-19 07:16] LABS: Basophils # (auto) 0 10 ^3/uL (0-0.2); Eosinophils # (auto) 0.1 10 ^3/uL (0-0.8); Hemoglobin 8.7 g/dL (13.5-17.5); Nucleated Red Blood Cells % 0.1 %
[2024-04-19 07:18] LABS: Basophils % (auto) 0.7 % (0.0-2.0); Hematocrit 25.9 % (41.0-53.0); Lymphocytes # (auto) 1.6 10 ^3/uL (0.4-5.4); Lymphocytes % (auto) 27.5 % (10.0-50.0); Mean Corpuscular Hemoglobin 33.9 pg (28.0-32.0); Mean Corpuscular Hgb Conc. 33.5 g/dL (32.0-36.0); Mean Corpuscular Volume 101.2 fL (80.0-100.0); Monocytes # (auto) 0.4 10 ^3/uL (0-1.3); Monocytes % (auto) 6.6 % (0.0-12.0); Neutrophils # (auto) 3.8 10 ^3/uL (1.6-8.6); Neutrophils % (auto) 64.2 % (37.0-80.0); Red Blood Cells 2.56 10^6/uL (4.5-5.90); Red Cell Distribution Width 14.6 % (11.8-14.3)
[2024-04-19] MEDS: VANCOMYCIN 1GM/200ML 200 ML IV SCH (11:30)
[2024-04-19] MEDS: POTASSIUM CHL 20 Meq TABLET PO ONE (16:42)
[2024-04-19] MEDS: methylPREDNISolone SOD SUCC 40 MG/ML VL IV SCH (16:42)
[2024-04-20] VITALS (40 sets, daily range): BP systolic 95–146; BP diastolic 45–88; PULSE 70–118; RESP 12–31; TEMP 97.9–98.6; O2SAT 91–100
[2024-04-20 02:24] LABS: Basophils # (auto) 0 10 ^3/uL (0-0.2); Basophils % (auto) 0.1 % (0.0-2.0); Eosinophils # (auto) 0 10 ^3/uL (0-0.8); Hematocrit 26.6 % (41.0-53.0); Hemoglobin 8.8 g/dL (13.5-17.5); Lymphocytes # (auto) 0.9 10 ^3/uL (0.4-5.4); Lymphocytes % (auto) 22.3 % (10.0-50.0); Mean Corpuscular Hemoglobin 33.2 pg (28.0-32.0); Mean Corpuscular Volume 100.4 fL (80.0-100.0); Monocytes # (auto) 0.1 10 ^3/uL (0-1.3); Monocytes % (auto) 1.9 % (0.0-12.0); Neutrophils # (auto) 3.2 10 ^3/uL (1.6-8.6); Neutrophils % (auto) 75.7 % (37.0-80.0); Nucleated Red Blood Cells % 0.1 %; Red Blood Cells 2.65 10^6/uL (4.5-5.90); Red Cell Distribution Width 14.3 % (11.8-14.3); White Blood Cell 4.2 10^3/uL (4.4-10.8)
[2024-04-20 02:36] LABS: Alanine Aminotransferase 54 U/L (7-40); Albumin 2.8 g/dL (3.2-4.8); Alkaline Phosphatase 66 U/L (46-116); Anion Gap 4 (5-15); Aspartate Aminotransferase 45 U/L (13-40); Bilirubin, Total 0.3 mg/dL (0.2-1.0); Blood Urea Nitrogen 16 mg/dL (9-23); Calcium 8.2 mg/dL (8.7-10.4); Carbon Dioxide 30 mmol/L (20-30); Chloride 102 mmol/L (98-107); Glucose 196 mg/dL (74-106); Potassium 4.4 mmol/L (3.5-5.1); Sodium 136 mmol/L (136-145); Total Protein 4.8 g/dL (5.7-8.2)
[2024-04-20] MEDS: LIDOCAINE 1% (LOCAL ANESTH.) PF 5ml SDV ONE (08:14)
[2024-04-20] MEDS: LIDOCAINE 1% HCL (LOCAL ANESTH.) INJ 20ML MDV ID ONE (08:15)
[2024-04-20] MEDS: MAGNESIUM SULFATE 1GM/100ML 100 ML IV SCH ×2 (11:59→23:06)
[2024-04-20] MEDS: guaiFENesin-CODEINE Liq 5 ML UD PO PRN (14:38)
[2024-04-21] VITALS (38 sets, daily range): BP systolic 106–150; BP diastolic 66–86; PULSE 73–109; RESP 11–31; TEMP 97.7–98.6; O2SAT 92–99
[2024-04-21 04:56] LABS: Chloride 104 mmol/L (98-107); Hemoglobin 7.7 g/dL (13.5-17.5); Potassium 3.7 mmol/L (3.5-5.1); Sodium 137 mmol/L (136-145)
[2024-04-21 04:57] LABS: Anion Gap 4 (5-15); Calcium 8.6 mg/dL (8.7-10.4); Carbon Dioxide 29 mmol/L (20-30)
[2024-04-21 04:58] LABS: Hematocrit 22.9 % (41.0-53.0); Mean Corpuscular Hemoglobin 33.5 pg (28.0-32.0); Mean Corpuscular Hgb Conc. 33.8 g/dL (32.0-36.0); Mean Corpuscular Volume 99.3 fL (80.0-100.0); Red Blood Cells 2.31 10^6/uL (4.5-5.90); Red Cell Distribution Width 14.2 % (11.8-14.3); White Blood Cell 7.4 10^3/uL (4.4-10.8)
[2024-04-21 05:02] LABS: BUN/Creatinine Ratio 16.3 (10.0-20.0); Blood Urea Nitrogen 13 mg/dL (9-23); Glucose 194 mg/dL (74-106)
[2024-04-21 05:03] LABS: Magnesium 1.7 mg/dL (1.6-2.6)
[2024-04-21 05:08] LABS: Basophils % (manual) 0 (0.0-2.0); Blast Cells 0; Eosinophils % (manual) 0 (0-7); Metamyelocytes % 0; Myelocytes % 0; Promyelocytes % 0; Reactive Lymphocytes 0
[2024-04-21 05:42] LABS: Band Neutrophils % (manual) 1; Lymphocytes % (manual) 15 (10.0-50.0); Monocytes % (manual) 3 (0-12); Platelet Estimate Adequate
[2024-04-21 07:23] LABS: Basophils # (auto) 0 10 ^3/uL (0-0.2); Basophils % (auto) 0.1 % (0.0-2.0); Eosinophils # (auto) 0 10 ^3/uL (0-0.8); Hematocrit 26.3 % (41.0-53.0); Hemoglobin 8.7 g/dL (13.5-17.5); Lymphocytes # (auto) 1.4 10 ^3/uL (0.4-5.4); Lymphocytes % (auto) 16.7 % (10.0-50.0); Mean Corpuscular Hemoglobin 33.6 pg (28.0-32.0); Mean Corpuscular Hgb Conc. 33.1 g/dL (32.0-36.0); Mean Corpuscular Volume 101.5 fL (80.0-100.0); Monocytes # (auto) 0.4 10 ^3/uL (0-1.3); Monocytes % (auto) 4.7 % (0.0-12.0); Neutrophils # (auto) 6.5 10 ^3/uL (1.6-8.6); Neutrophils % (auto) 78.5 % (37.0-80.0); Red Blood Cells 2.59 10^6/uL (4.5-5.90); Red Cell Distribution Width 14.2 % (11.8-14.3); White Blood Cell 8.3 10^3/uL (4.4-10.8)
[2024-04-21] MEDS: MAGNESIUM SULFATE 1GM/100ML 100 ML IV SCH (07:44)
[2024-04-22] VITALS (44 sets, daily range): BP systolic 96–138; BP diastolic 43–78; PULSE 15–113; RESP 10–29; TEMP 97.3–98.2; O2SAT 87–100
[2024-04-22 04:19] LABS: Anion Gap 5 (5-15); Carbon Dioxide 29 mmol/L (20-30); Chloride 103 mmol/L (98-107); Potassium 3.6 mmol/L (3.5-5.1); Sodium 137 mmol/L (136-145)
[2024-04-22 04:20] LABS: Calcium 8.9 mg/dL (8.7-10.4)
[2024-04-22 04:25] LABS: BUN/Creatinine Ratio 21.4 (10.0-20.0); Blood Urea Nitrogen 18 mg/dL (9-23); Glucose 191 mg/dL (74-106)
[2024-04-22 04:26] LABS: Magnesium 1.7 mg/dL (1.6-2.6)
[2024-04-22 04:27] LABS: Hematocrit 23.3 % (41.0-53.0); Hemoglobin 7.8 g/dL (13.5-17.5); Mean Corpuscular Hgb Conc. 33.5 g/dL (32.0-36.0); Red Blood Cells 2.36 10^6/uL (4.5-5.90)
[2024-04-22 04:29] LABS: Mean Corpuscular Hemoglobin 33.1 pg (28.0-32.0); Mean Corpuscular Volume 98.7 fL (80.0-100.0); Red Cell Distribution Width 14.3 % (11.8-14.3); White Blood Cell 8.9 10^3/uL (4.4-10.8)
[2024-04-22 04:32] LABS: Basophils % (manual) 0 (0.0-2.0); Blast Cells 0; Eosinophils % (manual) 0 (0-7); Metamyelocytes % 0; Myelocytes % 0; Promyelocytes % 0; Reactive Lymphocytes 0
[2024-04-22 04:53] LABS: Band Neutrophils % (manual) 2; Lymphocytes % (manual) 16 (10.0-50.0); Monocytes % (manual) 6 (0-12)
[2024-04-22 04:54] LABS: Platelet Estimate Adequate
[2024-04-22] MEDS: PANTOPRAZOLE 40 MG/10 ML VIAL INJ IV SCH (10:16)
[2024-04-22] MEDS: MAGNESIUM SULFATE 1GM/100ML 100 ML IV SCH (11:28)
[2024-04-22] MEDS: POTASSIUM CHL 20 Meq TABLET PO ONE (11:29)
[2024-04-22] MEDS: LACTULOSE 20Gm/30ML SOLN PO PRN (12:49)
[2024-04-23] VITALS (49 sets, daily range): BP systolic 100–153; BP diastolic 71–91; PULSE 68–110; RESP 11–27; TEMP 97.7–98.2; O2SAT 90–100
[2024-04-23 04:38] LABS: Red Cell Distribution Width 14.6 % (11.8-14.3)
[2024-04-23 04:42] LABS: Hematocrit 24.9 % (41.0-53.0); Hemoglobin 8.3 g/dL (13.5-17.5); Mean Corpuscular Hemoglobin 33.8 pg (28.0-32.0); Mean Corpuscular Hgb Conc. 33.4 g/dL (32.0-36.0); Mean Corpuscular Volume 101.3 fL (80.0-100.0); Red Blood Cells 2.46 10^6/uL (4.5-5.90); White Blood Cell 9.9 10^3/uL (4.4-10.8)
[2024-04-23 04:47] LABS: Basophils % (manual) 0 (0.0-2.0); Blast Cells 0; Eosinophils % (manual) 0 (0-7); Promyelocytes % 0; Reactive Lymphocytes 0
[2024-04-23 04:48] LABS: Calcium 8.6 mg/dL (8.5-10.1); Chloride 106 mmol/L (98-107); Potassium 3.8 mmol/L (3.5-5.1); Sodium 138 mmol/L (136-145)
[2024-04-23 04:49] LABS: Anion Gap 7 (5-15); Carbon Dioxide 25 mmol/L (20-30)
[2024-04-23 04:54] LABS: BUN/Creatinine Ratio 12.8 (10.0-20.0); Blood Urea Nitrogen 12 mg/dL (9-23); Glucose 194 mg/dL (74-106); Magnesium 1.6 mg/dL (1.6-2.6)
[2024-04-23 05:09] LABS: Band Neutrophils % (manual) 2; Macrocytosis Slight; Metamyelocytes % 3; Monocytes % (manual) 4 (0-12); Myelocytes % 3; Platelet Estimate Adequate
[2024-04-23 05:10] LABS: Lymphocytes % (manual) 20 (10.0-50.0)
[2024-04-23] MEDS ORDERED: VANCOMYCIN PER PHARMACY 0 MG IV SCH (09:45)
[2024-04-23] MEDS: FOLIC ACID 1 MG TAB PO SCH (11:30)
[2024-04-23] MEDS: CYANOCOBALAMIN 500 MCG TAB PO SCH (11:30)
[2024-04-23] MEDS: MAGNESIUM SULFATE 1GM/100ML 100 ML IV SCH (16:22)
[2024-04-23] MEDS: oxyCODONE HCL 5MG TAB PO PRN (16:59)
[2024-04-23] MEDS: VANCOMYCIN 1GM/200ML 200 ML IV SCH (18:28)
[2024-04-24] VITALS (44 sets, daily range): BP systolic 116–169; BP diastolic 65–96; PULSE 64–111; RESP 10–25; TEMP 97.9–98.8; O2SAT 91–100
[2024-04-24 04:10] LABS: Hematocrit 26.1 % (41.0-53.0); Hemoglobin 8.7 g/dL (13.5-17.5); Mean Corpuscular Hemoglobin 33.2 pg (28.0-32.0); Mean Corpuscular Hgb Conc. 33.2 g/dL (32.0-36.0); Red Blood Cells 2.61 10^6/uL (4.5-5.90); Red Cell Distribution Width 14.7 % (11.8-14.3)
[2024-04-24 04:15] LABS: Basophils % (manual) 0 (0.0-2.0); Blast Cells 0; Eosinophils % (manual) 0 (0-7); Promyelocytes % 0; Reactive Lymphocytes 0
[2024-04-24 04:22] LABS: Calcium 8.8 mg/dL (8.5-10.1); Chloride 103 mmol/L (98-107); Potassium 3.8 mmol/L (3.5-5.1); Sodium 138 mmol/L (136-145)
[2024-04-24 04:23] LABS: Anion Gap 6 (5-15); Carbon Dioxide 29 mmol/L (20-30)
[2024-04-24 04:28] LABS: BUN/Creatinine Ratio 16.2 (10.0-20.0); Blood Urea Nitrogen 18 mg/dL (9-23); Glucose 182 mg/dL (74-106); Magnesium 1.7 mg/dL (1.6-2.6)
[2024-04-24 04:34] LABS: Band Neutrophils % (manual) 4; Lymphocytes % (manual) 22 (10.0-50.0); Metamyelocytes % 2; Monocytes % (manual) 5 (0-12); Myelocytes % 1; Platelet Estimate Adequate
[2024-04-24] MEDS: methylPREDNISolone SOD SUCC 40 MG/ML VL IV SCH (22:21)
[2024-04-24 23:31] LABS: COVID19 ANTIGEN SOFIA FIA NEGATIVE (NEGATIVE); Rapid Influenza A Negative (Negative); Rapid Influenza B Negative (Negative)
[2024-04-25] VITALS (22 sets, daily range): BP systolic 127–145; BP diastolic 54–79; PULSE 60–104; RESP 11–20; TEMP 97.4–98.3; O2SAT 91–98
[2024-04-25 04:18] LABS: Hematocrit 27.3 % (41.0-53.0); Hemoglobin 9.1 g/dL (13.5-17.5); Mean Corpuscular Hemoglobin 33.9 pg (28.0-32.0); Mean Corpuscular Hgb Conc. 33.4 g/dL (32.0-36.0); Mean Corpuscular Volume 101.3 fL (80.0-100.0); Red Cell Distribution Width 14.8 % (11.8-14.3); White Blood Cell 10.6 10^3/uL (4.4-10.8)
[2024-04-25 04:29] LABS: Basophils % (manual) 0 (0.0-2.0); Blast Cells 0; Eosinophils % (manual) 0 (0-7); Promyelocytes % 0; Reactive Lymphocytes 0
[2024-04-25 04:33] LABS: Anion Gap 5 (5-15); Carbon Dioxide 30 mmol/L (20-30); Chloride 102 mmol/L (98-107); Potassium 3.7 mmol/L (3.5-5.1); Sodium 137 mmol/L (136-145)
[2024-04-25 04:35] LABS: Calcium 8.6 mg/dL (8.7-10.4)
[2024-04-25 04:39] LABS: Glucose 166 mg/dL (74-106)
[2024-04-25 04:40] LABS: BUN/Creatinine Ratio 23.3 (10.0-20.0); Blood Urea Nitrogen 21 mg/dL (9-23); Magnesium 1.6 mg/dL (1.6-2.6)
[2024-04-25 04:58] LABS: Band Neutrophils % (manual) 3; Lymphocytes % (manual) 22 (10.0-50.0); Metamyelocytes % 1; Monocytes % (manual) 3 (0-12); Myelocytes % 1; Platelet Estimate Adequate
[2024-04-25] MEDS: MAGNESIUM SULFATE 1GM/100ML 100 ML IV SCH (09:56)
[2024-04-25] MEDS: POTASSIUM CHL 20 Meq TABLET PO ONE (09:58)
[2024-04-25] MEDS: NYSTATIN (MOUTH-THROAT) 500,000 UNITS/5 ML SUSP MT ONE (12:16)
[2024-04-25] MEDS ORDERED: FLUT50SP EACHNOSTRI (14:52)
[2024-04-25] MEDS ORDERED: METH4PAK PO (14:52)
[2024-04-25] MEDS ORDERED: METO-158 PO (14:52)
[2024-04-25] MEDS ORDERED: ALBUAER3 IN (14:52)
[2024-04-25] MEDS: VANCOMYCIN 1GM/200ML 200 ML IV SCH (20:03)
[2024-04-25] MEDS: THROAT LOZENGES(CEPASTAT) MT PRN (22:15)
[2024-04-26] VITALS (13 sets, daily range): BP systolic 105–132; BP diastolic 65–84; PULSE 65–107; RESP 16–18; TEMP 36.8; O2SAT 93–100
[2024-04-26 06:47] LABS: Basophils # (auto) 0 10 ^3/uL (0-0.2); Basophils % (auto) 0.3 % (0.0-2.0); Eosinophils # (auto) 0 10 ^3/uL (0-0.8); Hematocrit 27.8 % (41.0-53.0); Hemoglobin 9.4 g/dL (13.5-17.5); Lymphocytes # (auto) 1.7 10 ^3/uL (0.4-5.4); Lymphocytes % (auto) 18.4 % (10.0-50.0); Mean Corpuscular Hemoglobin 33.7 pg (28.0-32.0); Mean Corpuscular Hgb Conc. 33.8 g/dL (32.0-36.0); Mean Corpuscular Volume 99.8 fL (80.0-100.0); Monocytes # (auto) 0.4 10 ^3/uL (0-1.3); Monocytes % (auto) 4.6 % (0.0-12.0); Neutrophils # (auto) 7.3 10 ^3/uL (1.6-8.6); Neutrophils % (auto) 76.7 % (37.0-80.0); Red Blood Cells 2.79 10^6/uL (4.5-5.90); Red Cell Distribution Width 15.1 % (11.8-14.3); White Blood Cell 9.5 10^3/uL (4.4-10.8)
[2024-04-26 07:00] LABS: Anion Gap 3 (5-15); Carbon Dioxide 32 mmol/L (20-30); Chloride 103 mmol/L (98-107); Potassium 3.9 mmol/L (3.5-5.1); Sodium 138 mmol/L (136-145)
[2024-04-26 07:01] LABS: Calcium 8.6 mg/dL (8.7-10.4)
[2024-04-26 07:06] LABS: BUN/Creatinine Ratio 21.2 (10.0-20.0); Blood Urea Nitrogen 18 mg/dL (9-23); Glucose 149 mg/dL (74-106)
[2024-04-26 07:07] LABS: Magnesium 1.9 mg/dL (1.6-2.6)
[2024-04-26 07:26] LABS: Basophils % (manual) 0 (0.0-2.0); Blast Cells 0; Eosinophils % (manual) 0 (0-7); Promyelocytes % 0; Reactive Lymphocytes 0
[2024-04-26 08:11] LABS: Band Neutrophils % (manual) 5; Lymphocytes % (manual) 18 (10.0-50.0); Metamyelocytes % 3; Monocytes % (manual) 5 (0-12); Myelocytes % 1
[2024-04-26 08:12] LABS: Anisocytosis Slight; Macrocytosis Slight; Platelet Estimate Adequate
[2024-04-26 08:18] LABS: Nucleated Red Blood Cells % 0.3 %
[2024-04-26] MEDS: CEFEPIME 2GM/50ML NS 50 ML IV SCH (08:55)
[2024-04-26 10:11] LABS: INR 1.03 (0.9-1.15); Partial Thromboplastin Time 21.1 SEC (24.5-34.5); Prothrombin Time 10.9 sec (9.3-11.8)
[2024-04-26] MEDS: LIDOCAINE 1% (LOCAL ANESTH.) PF 5ml SDV ID ONE (12:15)
[2024-04-26] MEDS ORDERED: SODIUM CHLOR 0.9% PF (SALINE LOCK) 10ML VIAL/SYR IV SCH (22:00)
== END 2024-04-26 18:36 | disposition home health service (06) | DRG 710 ==
LOC: ER 13:36 → TELE 21:52 → TELE-WESTW 03-21 17:44 → DOU IN ICU 04-14 21:22 → ICU WEST 04-16 17:45 → TELE-WESTW 04-25 04:44
PROVIDERS: ADMIT Nurse Practitioner Family; ATTEND Internal Medicine
PROC: 0W9B30Z Drainage of Left Pleural Cavity with Drainage Device, Percutaneous Approach (ICD-10-PCS; principal; 2024-03-26)
PROC: 02HV33Z Insertion of Infusion Device into Superior Vena Cava, Percutaneous Approach (ICD-10-PCS; 2024-03-30)
PROC: B548ZZA Ultrasonography of Superior Vena Cava, Guidance (ICD-10-PCS; 2024-03-30)
PROC: 0W9B30Z Drainage of Left Pleural Cavity with Drainage Device, Percutaneous Approach (ICD-10-PCS; 2024-03-31)
PROC: 0WPBX0Z Removal of Drainage Device from Left Pleural Cavity, External Approach (ICD-10-PCS; 2024-04-04)
PROC: 0W9B30Z Drainage of Left Pleural Cavity with Drainage Device, Percutaneous Approach (ICD-10-PCS; 2024-04-04)
PROC: 3E0T3BZ Introduction of Anesthetic Agent into Peripheral Nerves and Plexi, Percutaneous Approach (ICD-10-PCS; 2024-04-16)
PROC: 0B9L8ZX Drainage of Left Lung, Via Natural or Artificial Opening Endoscopic, Diagnostic (ICD-10-PCS; 2024-04-16)
PROC: 5A0935A Assistance with Respiratory Ventilation, Less than 24 Consecutive Hours, High Flow/Velocity Cannula (ICD-10-PCS; 2024-04-16)
PROC: 05HF33Z Insertion of Infusion Device into Left Cephalic Vein, Percutaneous Approach (ICD-10-PCS; 2024-04-16)
PROC: B54NZZA Ultrasonography of Left Upper Extremity Veins, Guidance (ICD-10-PCS; 2024-04-16)
PROC: 0BCL0ZZ Extirpation of Matter from Left Lung, Open Approach (ICD-10-PCS; 2024-04-16)
PROC: 0WPB00Z Removal of Drainage Device from Left Pleural Cavity, Open Approach (ICD-10-PCS; 2024-04-16)
PROC: 05HY33Z Insertion of Infusion Device into Upper Vein, Percutaneous Approach (ICD-10-PCS; 2024-04-26)
PROC: B54NZZA Ultrasonography of Left Upper Extremity Veins, Guidance (ICD-10-PCS; 2024-04-26)
DX: A40.0 Sepsis due to streptococcus, group A (principal); J96.01 Acute respiratory failure with hypoxia; N17.0 Acute kidney failure with tubular necrosis; J86.9 Pyothorax without fistula; I67.1 Cerebral aneurysm, nonruptured; J15.69 Pneumonia due to other Gram-negative bacteria; J94.8 Other specified pleural conditions; J18.1 Lobar pneumonia, unspecified organism; J15.9 Unspecified bacterial pneumonia; E11.22 Type 2 diabetes mellitus with diabetic chronic kidney disease; J90 Pleural effusion, not elsewhere classified; K76.0 Fatty (change of) liver, not elsewhere classified; J98.11 Atelectasis; N18.32 Chronic kidney disease, stage 3b; Z20.822 Contact with and (suspected) exposure to COVID-19; I12.9 Hypertensive chronic kidney disease with stage 1 through stage 4 chronic kidney disease, or unspecified chronic kidney disease; R79.89 Other specified abnormal findings of blood chemistry; E66.9 Obesity, unspecified; E11.65 Type 2 diabetes mellitus with hyperglycemia; F10.239 Alcohol dependence with withdrawal, unspecified; K82.8 Other specified diseases of gallbladder; I25.2 Old myocardial infarction; Z68.31 Body mass index [BMI] 31.0-31.9, adult; Z90.49 Acquired absence of other specified parts of digestive tract; Z81.1 Family history of alcohol abuse and dependence; Z83.3 Family history of diabetes mellitus; Z86.718 Personal history of other venous thrombosis and embolism; D64.9 Anemia, unspecified
CPT/HCPCS: 10005; 36415; 36569; 36600; 70450; 71045; 71250; 71275; 76775; 77012; 80048; 80053; 80202; 80307; 80320; 81001; 82270; 82306; 82565; 82570; 82805; 83605; 83690; 83735; 83880; 84100; 84132; 84156; 84300; 84443; 84484; 84550; 85007; 85025; 85027; 85379; 85610; 85730; 86850; 86900; 86901; 86920; 87040; 87070; 87075; 87077; 87081; 87186; 87205; 87426; 87804; 93005; 93306; 93970; 94640; 96365; 96372; 96375; 97110; 97116; 97163; 97530; 99152; C1724; C1729; C9113; G0378; J0131; J0330; J0692; J1100; J2001; J2250; J2405; J2543; J3490; J7060; P9047